=== PATIENT | male | born 1970 | race Caucasian/White ===

== ENCOUNTER → 2020-09-17 13:53 | Outpatient (REF) | payer OTHER, SELFPAY | LOC: HO.SL 13:53 | PROVIDERS: PCP Internal Medicine; Visit Provider Internal Medicine | DX: R06.83 Snoring (principal); R06.81 Apnea, not elsewhere classified | CPT/HCPCS: 95806 ==

== ENCOUNTER 2020-09-30 08:59 | Outpatient (REF) | payer OTHER, SELFPAY ==
--- NOTE | 2020-09-30 | US_ITS ---
EXAMINATION: US ABDOMEN COMPLETE CLINICAL INFORMATION: Hereditary hemochromatosis. COMPARISON: Abdominal ultrasound dated 05/08/2019. CT abdomen and pelvis dated 08/22/2011. TECHNIQUE: Real-time imaging of the abdominal viscera. FINDINGS: PANCREAS: Normal. ABDOMINAL AORTA: The proximal, mid, and distal segments are normal in caliber. INFERIOR VENA CAVA: Visualized portions are normal. LIVER: The liver is normal in size. The liver contour is normal. There is a diffuse echogenic liver with focal fatty sparing adjacent to gallbladder. No focal hepatic lesion. There is no intrahepatic biliary duct dilatation seen. GALLBLADDER: Normal. The gallbladder is physiologically distended without evidence of stones, sludge, polyps, wall thickening or pericholecystic fluid. COMMON BILE DUCT: Normal in caliber measuring 0.4 cm in diameter. RIGHT KIDNEY: Normal. No hydronephrosis. No renal calculi or focal parenchymal lesions. The kidney measures 9.9 cm in maximum dimension. LEFT KIDNEY: Normal. No hydronephrosis. No renal calculi or focal parenchymal lesions. The kidney measures 10.6 cm in maximum dimension. SPLEEN: Normal. The spleen measures 11.0 cm in maximum dimension. FREE FLUID: None. US/US abdomen complete IMPRESSION: Diffuse fatty liver with focal fatty sparing adjacent to gallbladder. The rest of the abdominal ultrasound is unremarkable.
[2020-09-30 11:25] LABS: Prothrombin Time 11.8 SEC (10.8-13.0)
== END 2020-09-30 09:00 | disposition home or self-care (01) ==
LOC: HO.HMGCX 08:59
PROVIDERS: PCP Internal Medicine; Visit Provider Internal Medicine
DX: E83.110 Hereditary hemochromatosis (principal)
CPT/HCPCS: 36415; 76700; 82105; 85610

== ENCOUNTER 2020-10-28 09:49 | Day surgery (SDC) | payer OTHER, SELFPAY ==
[2020-10-21 11:06] VITALS: BMI 24.3
--- NOTE | 2020-10-27 10:20 | P.CONAN_ITS ---
Documented by User: Katelynn Monroe 10/27/20 10:21 HPI - Anesthesia Eval Consult details Narrative: 49yo M for Colonoscopy PMFSH Past Medical History Medical History Fatty liver GERD (gastroesophageal reflux disease) Hemochromatosis Surgical History Surgical History H/O colonoscopy Social History Social History Smoking Status: Former smoker Smoking Quit Date: before 2009 Use of substances other than those prescribed or required for medical reasons: No Advance Directives Information Provided: No Meds Allergies Allergy/AdvReac Type Severity Reaction Status Date / Time No Known Allergies Allergy Verified 10/21/20 11:10 Home Medications Medication Instructions Recorded Confirmed Type ibuprofen 400 mg PO Q6H PRN 10/21/20 10/21/20 History omeprazole 20 mg PO DAILY 10/21/20 10/21/20 History Exam Exam Date and Time: October 27, 2020 1020 Height,Weight and Vital Signs: Height 5 ft 10.75 in Weight 78.471 kg Pertinent Lab Results Pertinent Lab Results: Laboratory Tests 08/25/20 08/25/20 06:28 06:28 WBC 4.8 Hgb 15.4 Hct 43.2 Plt Count 181 Sodium 141 Potassium 4.4 Chloride 105 BUN 17 H Creatinine 1.00 Assessment and Plan Assessment Anesthesia Assessment: Chart Reviewed Documented by User: Jonnie Vega 10/28/20 11:21 [facility] Past Medical History Medical History Fatty liver GERD (gastroesophageal reflux disease) Hemochromatosis Surgical History Surgical History H/O colonoscopy Social History Social History Smoking Status: Former smoker Smoking Quit Date: before 2009 Use of substances other than those prescribed or required for medical reasons: No Advance Directives Information Provided: No Meds Allergies Allergy/AdvReac Type Severity Reaction Status Date / Time No Known Allergies Allergy Verified 10/21/20 11:10 Home Medications Medication Instructions Recorded Confirmed Type ibuprofen 400 mg PO Q6H PRN 10/21/20 10/21/20 History omeprazole 20 mg PO DAILY 10/21/20 10/21/20 History Exam Airway Mallampati Class: II TM Dist: >3cm Neck ROM: Full Loose/Missing/Broken Teeth: No (many permanent caps) Heart: [id number] Lungs: CTA b/l Assessment and Plan Assessment Anesthesia Assessment: Anesthesia Plan Discussed, PAT Visit and Chart Reviewed Final Anesthetic Review NPO: Yes ASA Class: II Final Preanesthetic Review: No Changes in Pt Med Stat, Meds/Allgs Chart Reviewed, Consent Obtained/Reviewed and Anes Risks/Benef Reviewed Patient Risk: Low Procedure Risk: Low Assessment/Block/Sedation in SS: Assess/Block/Sedation-SS Anesthetic Plan Anesthetic Plan: MAC: Disposition: Standard PACU
[2020-10-28 10:24] VITALS: BP 134/84; PULSE 90; RESP 16; TEMP 36.8; O2SAT 98
[2020-10-28] MEDS: Lactated Ringers 1,000 ML 100 ML IVCONT (10:31)
[2020-10-28 12:06] VITALS: BP 117/74; PULSE 91; RESP 12; TEMP 36.2; O2SAT 97
--- NOTE | 2020-10-28 12:09 | PM.OP ---
Brief Operative Note Date of Service: 10/28/20 Pre-op diagnosis: Screening, History of colon polyps Post-op diagnosis: other (Rectal polyp, Diverticulosis) Procedure: Colonoscopy to cecum and TI with biopsy and removal of polyp Surgeon: Jake Blue Anesthesia: MAC Estimated blood loss (mL): 3.0 Pathology: other (A. Rectal polyp) Condition: stable Disposition: PACU
[2020-10-28 12:21] VITALS: BP 128/85; PULSE 81; RESP 13; TEMP 36.2; O2SAT 99
--- NOTE | 2020-10-28 12:52 | HO.POSTANES ---
Post Anesthesia Evaluation Post Anesthesia Evaluation Vital Signs: Vital Signs Temp Pulse Resp BP Pulse Ox 10/28/20 12:21 97.1 F 81 13 128/85 99 10/28/20 12:06 97.1 F 91 12 117/74 97 10/28/20 10:24 98.2 F 90 16 134/84 98 Anesthesia: Monitored Mental Status: Awake Pain Control: Satisfactory Nausea/Vomiting: None Hydration: Adequate Anesthesia-Related Issues: No Anes. Related Issues
--- NOTE | 2020-10-28 19:06 | OP_ITS ---
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 Full consent has been obtained from him for this, including risks of bleeding and perforation. PREOPERATIVE DIAGNOSIS: POSTOPERATIVE DIAGNOSIS: PROCEDURE PERFORMED: Colonoscopy to cecum and terminal ileum with biopsy and removal of polyp. ESTIMATED BLOOD LOSS: COMPLICATIONS: ANESTHESIA: Monitored anesthesia care. ASSISTANTS: SPECIMENS: PREOPERATIVE DIAGNOSES: Colorectal cancer screening and personal history of colon polyps. POSTOPERATIVE DIAGNOSES: Colorectal cancer screening and personal history of colon polyps, small rectal polyp, diverticulosis, internal hemorrhoids. DESCRIPTION OF PROCEDURE: The patient was placed in the left lateral decubitus position. The digital rectal exam revealed no abnormalities. The Olympus video pediatric colonoscope was entered into the rectum and advanced easily to the cecum. Once in the cecum, I did identify normal-appearing cecal pouch with appendiceal orifice and a normal-appearing ileocecal valve. The terminal ileum was cannulated and appeared normal. The scope was withdrawn back in the colon. The entire cecum and ileocecal valve appeared normal. The scope was slowly withdrawn assessing all mucosal surfaces carefully. Preparation was excellent. There was a mild amount of sigmoid diverticulosis. I did not visualize any sign of colitis nor angiodysplasia. In the rectum, was a flat approximately 5 mm polyp, which was biopsied and completely removed with cold biopsy forceps. The scope was retroflexed visualizing small internal hemorrhoids as well. The scope was straightened out and withdrawn from the patient. He tolerated the procedure well and was returned to recovery area in stable condition. IMPRESSION: 1. Rectal polyp, status post biopsy and removal. 2. Diverticulosis. 3. Internal hemorrhoids. PLAN: Given his previous history, I would recommend a followup colonoscopy in 3 years for further surveillance. He will otherwise see me on a p.r.n. basis. He will continue to have his phlebotomies every other month. MD DAVID Schneider/MELQUIADES / [phone]
== END 2020-10-28 12:54 | disposition home or self-care (01) ==
PROVIDERS: PCP Internal Medicine; Visit Provider Internal Medicine
PROC: 0DJD8ZZ Inspection of Lower Intestinal Tract, Via Natural or Artificial Opening Endoscopic (ICD-10-PCS; CPT 45378; principal; 2020-10-28 11:10)
DX: Z12.11 Encounter for screening for malignant neoplasm of colon (principal); Z86.010 Personal history of colon polyps; K62.1 Rectal polyp; K57.30 Diverticulosis of large intestine without perforation or abscess without bleeding; K64.8 Other hemorrhoids; K76.0 Fatty (change of) liver, not elsewhere classified; K21.9 Gastro-esophageal reflux disease without esophagitis; E83.119 Hemochromatosis, unspecified; Z79.899 Other long term (current) drug therapy
CPT/HCPCS: 45380; 88305

== ENCOUNTER 2020-11-03 15:59 | Outpatient (REF) | payer OTHER, SELFPAY | END 2020-11-03 16:00 | disposition home or self-care (01) | LOC: HO.BBR 15:59 | PROVIDERS: Visit Provider Internal Medicine | DX: Z13.89 Encounter for screening for other disorder (principal) ==

== ENCOUNTER 2021-01-05 15:55 | Outpatient (REF) | payer OTHER, SELFPAY ==
[2021-01-05 17:32] LABS: Iron 139 mcg/dL (45-160); Percent Iron Saturation 57 % (15-50); Total Iron Binding Capacity 242 mcg/dL (228-428); Unsaturated Iron Binding 103 ug/dL
[2021-01-05 17:51] LABS: Ferritin 23 ng/mL (20-250)
== END 2021-01-05 15:56 | disposition home or self-care (01) ==
LOC: HO.BBR 15:55
PROVIDERS: Visit Provider Internal Medicine
DX: E83.110 Hereditary hemochromatosis (principal)
CPT/HCPCS: 36415; 82728; 83540

== ENCOUNTER 2021-01-05 16:35 | Outpatient (REF) | payer SELFPAY ==
[2021-01-05 17:49] LABS: Cholesterol 117 mg/dL
== END 2021-01-05 16:36 | disposition home or self-care (01) ==
LOC: HO.LNC 16:35
PROVIDERS: Visit Provider Pathology Anatomic Pathology & Clinical Pathology
DX: Z13.89 Encounter for screening for other disorder (principal)
CPT/HCPCS: 36415; 82465

== ENCOUNTER 2021-03-29 14:16 | Outpatient (REF) | payer OTHER, SELFPAY | END 2021-03-29 14:17 | disposition home or self-care (01) | LOC: HO.BBR 14:16 | PROVIDERS: Visit Provider Internal Medicine | DX: Z13.89 Encounter for screening for other disorder (principal) ==

== ENCOUNTER 2021-06-11 14:01 | Outpatient (REF) | payer OTHER, SELFPAY ==
[2021-06-11 15:38] LABS: Iron 197 mcg/dL (45-160); Percent Iron Saturation 85 % (15-50); Total Iron Binding Capacity 233 mcg/dL (228-428); Unsaturated Iron Binding 36 ug/dL
[2021-06-11 16:00] LABS: Ferritin 34 ng/mL (20-250)
== END 2021-06-11 14:02 | disposition home or self-care (01) ==
LOC: HO.BBR 14:01
PROVIDERS: Visit Provider Internal Medicine
DX: E83.110 Hereditary hemochromatosis (principal)
CPT/HCPCS: 36415; 82728; 83540

== ENCOUNTER 2021-08-06 14:58 | Outpatient (REF) | payer OTHER, SELFPAY ==
[2021-08-06 15:59] LABS: Iron 179 mcg/dL (45-160); Percent Iron Saturation 72 % (15-50); Total Iron Binding Capacity 248 mcg/dL (228-428); Unsaturated Iron Binding 69 ug/dL
[2021-08-06 16:19] LABS: Ferritin 20 ng/mL (20-250)
== END 2021-08-06 14:59 | disposition home or self-care (01) ==
LOC: HO.BBR 14:58
PROVIDERS: Visit Provider Internal Medicine
DX: E83.110 Hereditary hemochromatosis (principal)
CPT/HCPCS: 36415; 82728; 83540

== ENCOUNTER 2021-08-25 05:54 | Outpatient (REF) | payer OTHER, SELFPAY ==
[2021-08-25 06:11] LABS: MANUAL DIFF FLAG NO
[2021-08-25 07:04] LABS: Basophils Percent Auto 0.4 % (0-2); Eosinophils Absolute Auto 0.4 X10*3/uL (0.0-0.4); Eosinophils Percent Auto 7.4 % (0-4); Hematocrit 43.6 % (42-52); Hemoglobin 15.2 g/dl (14.0-18.0); Imm Gran Abs Auto 0.01 X10*3/uL (0.00-0.03); Imm Gran Pct Auto 0.2 % (0.0-0.4); Lymphocytes Absolute Auto 1.9 X10*3/uL (1.2-4.9); Lymphocytes Percent Auto 34.4 % (20-40); Mean Corpuscular HGB Conc 34.9 g/dl (31.0-36.0); Mean Corpuscular Hemoglobin 33.3 pg (27.0-33.0); Mean Corpuscular Volume 95.6 fL (80-98); Mean Platelet Volume 11.8 fL (9.4-12.4); Monocytes Absolute Auto 0.6 X10*3/uL (0.1-1.2); Monocytes Percent Auto 10.6 % (2-11); Neutrophils Absolute Auto 2.5 X10*3/uL (2.0-8.3); Platelet Count 205 X10*3/uL (160-400); Red Blood Count 4.56 X10*6/uL (4.60-5.80); Red Cell Distribution Width 13.1 % (11.0-16.0); White Blood Count 5.4 X10*3/uL (4.8-10.8)
[2021-08-25 07:26] LABS: Alanine Aminotransferase 28 U/L (0-40); Albumin Level 4.7 g/dL (3.5-5.0); Alkaline Phosphatase 47 U/L (39-117); Anion Gap 11 (12-20); Aspartate Amino Transferase 26 U/L (5-37); Bilirubin Total 1.4 mg/dL (0.0-1.0); Blood Urea Nitrogen 14 mg/dL (9-16); Calcium 9.6 mg/dL (8.4-10.2); Carbon Dioxide 27 mmol/L (22-29); Chloride 105 mmol/L (96-108); Cholesterol 129 mg/dL; Estimated Glomerular Filt Rate > 60; Glucose Fasting 105 mg/dL (60-99); HDL Cholesterol 47 mg/dL; LDL Cholesterol Calculated 73 mg/dl; Potassium 4.4 mmol/L (3.3-5.1); Sodium 139 mmol/L (135-145); Total Protein 7.5 g/dL (6.5-8.0); Triglycerides 47 mg/dL
[2021-08-25 07:47] LABS: Prostate Specific Antigen 1.95 ng/mL (<0.05-4.0); Thyroid Stimulating Hormone 2.46 uIU/mL (0.32-4.0)
== END 2021-08-25 05:55 | disposition home or self-care (01) ==
LOC: HO.LAB 05:54
PROVIDERS: PCP Internal Medicine; Visit Provider Internal Medicine
DX: Z00.00 Encounter for general adult medical examination without abnormal findings (principal); Z12.5 Encounter for screening for malignant neoplasm of prostate; R53.83 Other fatigue
CPT/HCPCS: 36415; 80053; 80061; 84153; 84443; 85025

== ENCOUNTER 2021-11-09 15:24 | Outpatient (REF) | payer OTHER, SELFPAY | END 2021-11-09 15:25 | disposition home or self-care (01) | LOC: HO.BBR 15:24 | PROVIDERS: Visit Provider Internal Medicine | DX: Z13.89 Encounter for screening for other disorder (principal) ==

== ENCOUNTER 2022-01-11 15:27 | Outpatient (REF) | payer OTHER, SELFPAY | END 2022-01-11 15:28 | disposition home or self-care (01) | LOC: HO.BBR 15:27 | PROVIDERS: Visit Provider Internal Medicine | DX: Z13.89 Encounter for screening for other disorder (principal) ==

== ENCOUNTER 2022-03-08 15:26 | Outpatient (REF) | payer OTHER, SELFPAY ==
[2022-03-08 16:16] LABS: Iron 184 mcg/dL (45-160); Percent Iron Saturation 77 % (15-50); Total Iron Binding Capacity 238 mcg/dL (228-428); Unsaturated Iron Binding 54 ug/dL
[2022-03-08 16:36] LABS: Ferritin 21 ng/mL (20-250)
== END 2022-03-08 15:27 | disposition home or self-care (01) ==
LOC: HO.BBR 15:26
PROVIDERS: Visit Provider Internal Medicine
DX: E83.110 Hereditary hemochromatosis (principal)
CPT/HCPCS: 36415; 82728; 83540

== ENCOUNTER 2022-03-15 14:49 | Outpatient (REF) | payer OTHER, SELFPAY ==
--- NOTE | ~2022-03-15 | XR_ITS ---
EXAMINATION: XR CHEST CLINICAL INFORMATION: Cough. Fatigue. COMPARISON: None TECHNIQUE: 2 views of the chest were obtained. FINDINGS: The cardiac and mediastinal contours are normal. There is question of a 1 x 1.5 cm left apical nodule. This overlies the third left posterior rib. The lungs are otherwise clear. There is no pleural effusion or pneumothorax. There are degenerative changes of the spine. XR/XR chest 2V IMPRESSION: Question 1 x 1.5 cm left upper lobe nodule. Follow-up apical lordotic view of the chest or chest CT recommended.
[2022-03-15 15:06] LABS: MANUAL DIFF FLAG NO
[2022-03-15 15:16] LABS: Basophils Percent Auto 0.5 % (0-2); Eosinophils Absolute Auto 0.5 X10*3/uL (0.0-0.4); Eosinophils Percent Auto 7.4 % (0-4); Hematocrit 41.1 % (42.0-52.0); Hemoglobin 14.6 g/dl (14.0-18.0); Imm Gran Abs Auto 0.02 X10*3/uL (0.00-0.03); Imm Gran Pct Auto 0.3 % (0.0-0.4); Lymphocytes Percent Auto 31.2 % (20-40); Mean Corpuscular HGB Conc 35.5 g/dl (31.0-36.0); Mean Corpuscular Hemoglobin 33.2 pg (27.0-33.0); Mean Corpuscular Volume 93.4 fL (80.0-98.0); Mean Platelet Volume 11.7 fL (9.4-12.4); Monocytes Absolute Auto 0.8 X10*3/uL (0.1-1.2); Monocytes Percent Auto 12.2 % (2-11); Neutrophils Absolute Auto 3.1 x10*3/uL (2.0-8.3); Neutrophils Percent Auto 48.4 % (45-73); Platelet Count 215 X10*3/uL (160-400); Red Cell Distribution Width 12.9 % (11.0-16.0); White Blood Count 6.3 X10*3/uL (4.8-10.8)
[2022-03-15 15:42] LABS: Alanine Aminotransferase 32 U/L (0-40); Albumin Level 4.6 g/dL (3.5-5.0); Alkaline Phosphatase 47 U/L (39-117); Anion Gap 10 (12-20); Aspartate Amino Transferase 24 U/L (5-37); Bilirubin Total 1.2 mg/dL (0.0-1.0); Blood Urea Nitrogen 17 mg/dL (9-16); Carbon Dioxide 32 mmol/L (22-29); Chloride 104 mmol/L (96-108); Estimated Glomerular Filt Rate > 60; Glucose Random 96 mg/dL (60-115); Iron 86 mcg/dL (45-160); Percent Iron Saturation 31 % (15-50); Potassium 4.3 mmol/L (3.3-5.1); Sodium 142 mmol/L (135-145); Total Iron Binding Capacity 279 mcg/dL (228-428); Total Protein 7.5 g/dL (6.5-8.0); Unsaturated Iron Binding 193 ug/dL
[2022-03-15 16:04] LABS: Ferritin 19 ng/mL (20-250)
[2022-03-15 16:09] LABS: Vitamin B12 389 pg/mL (200-900)
== END 2022-03-15 14:50 | disposition home or self-care (01) ==
LOC: HO.XRAY 14:49
PROVIDERS: PCP Internal Medicine; Visit Provider Internal Medicine
DX: R05.9 Cough, unspecified (principal); R53.83 Other fatigue; G47.33 Obstructive sleep apnea (adult) (pediatric); E83.110 Hereditary hemochromatosis
CPT/HCPCS: 36415; 71046; 80053; 82607; 82728; 83540; 85025

== ENCOUNTER 2022-03-24 16:15 | Outpatient (REF) | payer OTHER, SELFPAY ==
--- NOTE | ~2022-03-24 | CT_ITS ---
EXAMINATION: CT CHEST WITHOUT CONTRAST CLINICAL INFORMATION: Solitary pulmonary nodule. COMPARISON: None TECHNIQUE: Multidetector volumetric CT imaging of the chest was done. Axial MIP volume rendering provided. Sagittal and coronal reformatted images were obtained. This CT examination was performed using dose optimization techniques as appropriate, variously including the following: *Automated exposure control *Adjustment of mA and/or kV according to patient size (this includes techniques or standardized protocols for targeted exams where dose is matched to indication/reason for exam; i.e. extremities or head) *Use of iterative reconstruction technique DLP: 186 mGy-cm FINDINGS: BELT CLEANER: The lungs are hyperinflated but clear. LUNGS: The lungs are well expanded with 2 mm calcified nodule left lung apex image 121/7, 1 mm calcified nodule image 419/7. No noncalcified nodules visualized. No additional nodule seen. MEDIASTINUM: The thyroid lobes are symmetrical and normal. The central trachea and the bronchi are widely patent. Heart size and the great vessels are normal caliber. No pericardial effusion seen. No abnormal-sized mediastinal or hilar lymph node seen. PLEURA: There is no pleural effusion. No pleural mass or thickening. AXILLA: Small shotty lymph nodes are seen in the axilla. The chest wall is unremarkable. UPPER ABDOMEN: Visualized liver, spleen, pancreas and bilateral adrenal glands are unremarkable. No radiopaque gallstone seen. OSSEOUS STRUCTURES: No lytic or sclerotic process seen. There is mild ventral spondylosis mid dorsal spine. CT/CT chest wo con IMPRESSION: Stable pulmonary nodules. No new nodule seen. No abnormal mediastinal or axillary lymphadenopathy. Fleischner guidelines were followed.
== END 2022-03-24 16:16 | disposition home or self-care (01) ==
LOC: HO.CT 16:15
PROVIDERS: Visit Provider Internal Medicine
DX: R91.1 Solitary pulmonary nodule (principal)
CPT/HCPCS: 71250

== ENCOUNTER 2022-05-25 15:23 | Outpatient (REF) | payer OTHER, SELFPAY | END 2022-05-25 15:24 | disposition home or self-care (01) | LOC: HO.BBR 15:23 | PROVIDERS: Visit Provider Internal Medicine | DX: Z13.89 Encounter for screening for other disorder (principal) ==

== ENCOUNTER 2022-07-26 15:26 | Outpatient (REF) | payer OTHER, SELFPAY | END 2022-07-26 15:27 | disposition home or self-care (01) | LOC: HO.BBR 15:26 | PROVIDERS: Visit Provider Internal Medicine | DX: Z13.89 Encounter for screening for other disorder (principal) ==

== ENCOUNTER 2022-09-22 15:28 | Outpatient (REF) | payer OTHER, SELFPAY ==
[2022-09-22 17:11] LABS: Iron 189 mcg/dL (45-160); Percent Iron Saturation 71 % (15-50); Total Iron Binding Capacity 268 mcg/dL (228-428); Unsaturated Iron Binding 79 ug/dL
[2022-09-22 17:37] LABS: Ferritin 16 ng/mL (20-250)
== END 2022-09-22 15:29 | disposition home or self-care (01) ==
LOC: HO.BBR 15:28
PROVIDERS: Visit Provider Internal Medicine
DX: E83.110 Hereditary hemochromatosis (principal)
CPT/HCPCS: 36415; 82728; 83540

== ENCOUNTER 2022-12-16 15:26 | Outpatient (REF) | payer OTHER, SELFPAY | END 2022-12-16 15:27 | disposition home or self-care (01) | LOC: HO.BBR 15:26 | PROVIDERS: PCP Internal Medicine; Visit Provider Internal Medicine | DX: Z13.89 Encounter for screening for other disorder (principal) ==

== ENCOUNTER 2022-12-28 08:44 | Outpatient (REF) | payer OTHER, SELFPAY ==
--- NOTE | ~2022-12-28 | US_ITS ---
EXAMINATION: US ABDOMEN COMPLETE CLINICAL INFORMATION: Hereditary hemochromatosis. COMPARISON: Ultrasound abdomen complete 09/30/2020 and 05/08/2019. TECHNIQUE: Real-time imaging of the abdominal viscera. FINDINGS: PANCREAS: The visualized portions of the pancreas are unremarkable but most of the gland is obscured by bowel gas. ABDOMINAL AORTA: The proximal, mid, and distal segments are normal in caliber. INFERIOR VENA CAVA: Visualized portions are normal. LIVER: The liver is normal in size. The liver contour is normal. There is diffuse increased liver parenchymal echogenicity, consistent with hepatic steatosis. Focal fatty sparing is seen adjacent to the gallbladder. No focal hepatic lesion. There is no intrahepatic biliary duct dilatation seen. GALLBLADDER: Normal. The gallbladder is physiologically distended without evidence of stones, sludge, polyps, wall thickening or pericholecystic fluid. COMMON BILE DUCT: Normal in caliber measuring 0.5 cm in diameter. RIGHT KIDNEY: Normal. No hydronephrosis. No renal calculi or focal parenchymal lesions. The kidney measures 10.0 cm in maximum dimension. LEFT KIDNEY: An 8 x 4 mm echogenic focus is seen in the left mid kidney which could represent a stone, although it does not meet the strict criteria for a stone and no stones have been seen in the past. No hydronephrosis or focal parenchymal lesions. The kidney measures 11.3 cm in maximum dimension. SPLEEN: Normal. The spleen measures 11.2 cm in maximum dimension. FREE FLUID: None. US/US abdomen complete IMPRESSION: 1. Hepatic steatosis. 2. Possible left renal calculus.
== END 2022-12-28 08:45 | disposition home or self-care (01) ==
LOC: HO.US 08:44
PROVIDERS: PCP Internal Medicine; Visit Provider Internal Medicine
DX: E83.110 Hereditary hemochromatosis (principal)
CPT/HCPCS: 76700

== ENCOUNTER 2023-02-16 14:22 | Outpatient (REF) | payer OTHER, SELFPAY | END 2023-02-16 14:23 | disposition home or self-care (01) | LOC: HO.BBR 14:22 | PROVIDERS: Visit Provider Internal Medicine | DX: Z13.89 Encounter for screening for other disorder (principal) ==

== ENCOUNTER 2023-04-19 13:55 | Outpatient (REF) | payer OTHER, SELFPAY ==
[2023-04-19 16:27] LABS: Iron 82 mcg/dL (45-160); Percent Iron Saturation 32 % (15-50); Total Iron Binding Capacity 260 mcg/dL (228-428); Unsaturated Iron Binding 178 ug/dL
[2023-04-19 16:45] LABS: Ferritin 12 ng/mL (20-250)
== END 2023-04-19 13:56 | disposition home or self-care (01) ==
LOC: HO.BBR 13:55
PROVIDERS: PCP Internal Medicine; Visit Provider Internal Medicine
DX: E83.110 Hereditary hemochromatosis (principal)
CPT/HCPCS: 36415; 82728; 83540

== ENCOUNTER 2023-06-19 13:53 | Outpatient (REF) | payer OTHER, SELFPAY | END 2023-06-19 13:54 | disposition home or self-care (01) | LOC: HO.BBR 13:53 | PROVIDERS: PCP Internal Medicine; Visit Provider Internal Medicine | DX: Z13.89 Encounter for screening for other disorder (principal) ==

== ENCOUNTER 2023-08-23 13:59 | Outpatient (REF) | payer OTHER, SELFPAY | END 2023-08-23 14:00 | disposition home or self-care (01) | LOC: HO.BBR 13:59 | PROVIDERS: PCP Internal Medicine; Visit Provider Internal Medicine | DX: Z13.89 Encounter for screening for other disorder (principal) ==

== ENCOUNTER 2023-10-24 14:55 | Outpatient (REF) | payer OTHER, SELFPAY ==
[2023-10-24 16:05] LABS: Iron 140 mcg/dL (45-160); Percent Iron Saturation 55 % (15-50); Total Iron Binding Capacity 255 mcg/dL (228-428); Unsaturated Iron Binding 115 ug/dL
[2023-10-24 16:20] LABS: Ferritin 13 ng/mL (20-250)
== END 2023-10-24 14:56 | disposition home or self-care (01) ==
LOC: HO.BBR 14:55
PROVIDERS: PCP Internal Medicine; Visit Provider Internal Medicine
DX: E83.110 Hereditary hemochromatosis (principal)
CPT/HCPCS: 36415; 82728; 83540

== ENCOUNTER 2024-01-03 14:53 | Outpatient (REF) | payer OTHER, SELFPAY | END 2024-01-03 14:54 | disposition home or self-care (01) | LOC: HO.BBR 14:53 | PROVIDERS: PCP Internal Medicine; Visit Provider Internal Medicine | DX: Z13.89 Encounter for screening for other disorder (principal) ==

== ENCOUNTER 2024-03-05 14:51 | Outpatient (REF) | payer OTHER, SELFPAY | END 2024-03-05 14:52 | disposition home or self-care (01) | LOC: HO.BBR 14:51 | PROVIDERS: PCP Internal Medicine; Visit Provider Internal Medicine | DX: Z13.89 Encounter for screening for other disorder (principal) ==

== ENCOUNTER 2024-03-08 08:18 | Outpatient (REF) | payer OTHER, SELFPAY ==
--- NOTE | ~2024-03-08 | US_ITS ---
EXAMINATION: US COMPLETE ABDOMEN WITH LIVER ELASTOGRAPHY CLINICAL INFORMATION: Hereditary hemochromatosis. COMPARISON: Abdominal ultrasound dated 12/28/2022; CT abdomen and pelvis dated 08/22/2011. TECHNIQUE: Real-time imaging of the abdominal viscera. Noninvasive ultrasound liver fibrosis assessment is performed using Anabel ElastPQ point quantification shear wave elastography (2D-SWE) with a C5-2 MHz transducer. Multiple elastography samples are obtained. FINDINGS: PANCREAS: Normal. The visualized pancreatic head and body are normal in appearance. The remainder of the pancreas is obscured from visualization by the overlying bowel gas. ABDOMINAL AORTA: The proximal, middle, and distal aortic segments are normal in caliber. INFERIOR VENA CAVA: Visualized portions are normal. LIVER: The liver demonstrates normal size and contour. There is heterogeneous increase in echotexture, with a geographic pattern. No focal lesion or intrahepatic biliary duct dilatation. The right lobe measures 12.4 cm in length. The left lobe measures 12.0 cm in length. Portal flow is towards the liver (hepatopetal). Shear wave liver elastography median stiffness is 1.36 m/s (reference: normal median stiffness is 1.3 m/s or less). IQR/median stiffness to assess sampling precision is 0.13 (reference: good quality data set is IQR/median stiffness of 0.15 or less). GALLBLADDER: Normal. The gallbladder is physiologically distended without evidence of stones, sludge, polyps, wall thickening or pericholecystic fluid. COMMON BILE DUCT: Normal in caliber measuring 0.4 cm in diameter. RIGHT KIDNEY: Normal. No hydronephrosis. No renal calculi or focal parenchymal lesions. The kidney measures 9.3 cm in maximum dimension. LEFT KIDNEY: At the interpolar aspect, a 1.0 cm benign, simple cyst is seen, for which no imaging follow-up is recommended.. No hydronephrosis. No renal calculi or focal parenchymal lesions. The kidney measures 10.8 cm in maximum dimension. SPLEEN: Normal. The spleen measures 11.4 cm in maximum dimension. FREE FLUID: None. US/US abdomen comp w elastography IMPRESSION: 1. There is increased hepatic echotexture with a geographic pattern. This ultrasound appearance favors fatty infiltration. If further assessment for hematochromatosis is desired, consider abdominal MRI characterization. No focal hepatic mass or intrahepatic biliary dilatation is seen. 2. Liver elastography: In the absence of other known clinical signs, measurements rule out compensated advanced chronic liver disease. If there are known clinical signs, further testing may be needed for confirmation. REFERENCE: Society of Radiologists in Ultrasound Liver Stiffness Thresholds (2020): LIVER STIFFNESS THRESHOLDS: *Liver Stiffness equal or less than 1.3 m/s: High probability of being normal. *Liver Stiffness less than 1.7 m/s: In the absence of other known clinical signs, rules out compensated advanced chronic liver disease. *Liver Stiffness 1.7-2.1 m/s: Suggestive of compensated advanced chronic liver disease but need further test for confirmation. *Liver Stiffness over 2.1 m/s: Rules in compensated advanced chronic liver disease. *Liver Stiffness over 2.4 m/s: Suggestive of clinically significant portal hypertension. QUALITY OF DATA SET: *IQR/Median value equal or less than 0.15 implies a quality data set. *IQR/Median value over 0.15 implies a poor quality data set. SIGNIFICANT CHANGE FROM PRIOR EXAM: Significant change if liver stiffness measurement is 10% or greater from prior exam. OTHER CONSIDERATIONS: The stage of liver fibrosis may be overestimated in the setting of acute hepatitis, liver inflammation, elevated liver function tests, hepatic vascular congestion, obstructive cholestasis, non-fasting state, and infiltrative diseases such as amyloidosis and lymphoma. In some patients with NAFLD, the liver stiffness thresholds for compensated advanced chronic liver disease may be lower. In causes other than viral hepatitis and NAFLD, liver stiffness thresholds are not well established.
== END 2024-03-08 08:19 | disposition home or self-care (01) ==
LOC: HO.US 08:18
PROVIDERS: PCP Internal Medicine; Visit Provider Internal Medicine
DX: E83.110 Hereditary hemochromatosis (principal)
CPT/HCPCS: 76700; 76981

== ENCOUNTER 2024-05-08 14:51 | Outpatient (REF) | payer OTHER, SELFPAY ==
[2024-05-08 17:10] LABS: Iron 156 mcg/dL (45-160); Percent Iron Saturation 58 % (15-50); Total Iron Binding Capacity 271 mcg/dL (228-428); Unsaturated Iron Binding 115 ug/dL
[2024-05-08 17:23] LABS: Ferritin 13 ng/mL (20-250)
== END 2024-05-08 14:52 | disposition home or self-care (01) ==
LOC: HO.BBR 14:51
PROVIDERS: PCP Internal Medicine; Visit Provider Internal Medicine
DX: E83.110 Hereditary hemochromatosis (principal)
CPT/HCPCS: 36415; 82728; 83540

== ENCOUNTER 2024-06-03 08:12 | Day surgery (SDC) | payer OTHER, SELFPAY ==
[2024-05-29 15:20] VITALS: BMI 25.3
[2024-06-03 08:34] VITALS: BMI 24.3
[2024-06-03 08:40] VITALS: BP 114/76; PULSE 83; RESP 15; TEMP 36.5; O2SAT 97
[2024-06-03] MEDS: Lactated Ringers 1,000 ML 50 ML IVCONT (08:53)
--- NOTE | 2024-06-03 09:34 | HO.ANESPROP2 ---
HPI - Anesthesia Eval Consult details Narrative: 53 yo M presenting for EGD and colonoscopy. Hx of hemochromatosis with therapeutic phlebotomies. [facility] Past Medical History Medical History RENETTA on CPAP Fatty liver GERD (gastroesophageal reflux disease) Hemochromatosis Family History Family history of problems with anesthesia: No Surgical History Surgical History H/O colonoscopy History of Problems with Anesthesia: No Social History Social History (Updated 05/29/24 @ 15:22 by Gabriela Pal RN) Patient Tobacco Use Status: Never used Tobacco Tobacco use type: Cigarette Use of substances other than those prescribed or required for medical reasons: Yes Substance Use Type Other:: smoked Substance Use Frequency: Occasionally Are you DNR?: No Advance Directives: No Advance Directives Information Provided: Yes Meds Allergies Allergy/AdvReac Type Severity Reaction Status Date / Time No Known Allergies Allergy Verified 06/03/24 08:33 Active Medications: Current Medications Lactated Ringer's (Lr) 1,000 mls @ 50 mls/hr IVCONT .Q20H ANT Last Admin: 06/03/24 08:53 Dose: 50 mls/hr Sodium Biphosphate/Sodium Phosphate (Sodium Phosphate,[place]-Dibasic 133 Ml Enema) 133 ml DC ONCE PRN PRN Reason: Poor Colonoscopy Prep Results Home Medications ?Medication ?Instructions ?Recorded ?Confirmed ?Last Taken ?Type ibuprofen 200 mg tablet 400 mg PO Q6H PRN Pain 10/21/20 06/03/24 05/31/24 History omeprazole 20 mg capsule,delayed 20 mg PO DAILY 10/21/20 06/03/24 Unknown History release Exam Exam Date and Time: June 03, 2024907 Height,Weight and Vital Signs: Height 5 ft 10.75 in Weight 78.381 kg Last Vital Signs Temp 97.7 F 06/03/24 08:40 Pulse 83 06/03/24 08:40 Resp 15 06/03/24 08:40 BP 114/76 06/03/24 08:40 Pulse Ox 97 06/03/24 08:40 O2 Del Method Room Air 06/03/24 08:40 Airway Mallampati Class: II TM Dist: <=3cm Neck ROM: Full Loose/Missing/Broken Teeth: No (patient denies any loose or broken teeth) Heart: S1S2 Lungs: CTAB Assessment and Plan Assessment Anesthesia Assessment: Anesthesia Plan Discussed and Chart Reviewed Final Anesthetic Review Family History of Problems with Anesthesia: No History of Problems with Anesthesia: No NPO: Yes ASA Class: II Final Preanesthetic Review: No Changes in Pt Med Stat, Meds/Allgs Chart Reviewed, Consent Obtained/Reviewed and Anes Risks/Benef Reviewed Patient Risk: Low Procedure Risk: Low Anesthetic Plan Anesthetic Plan: MAC: and Agree w/ Assess. and Plan Disposition: Standard PACU
--- NOTE | 2024-06-03 10:10 | PC.NURSE ---
24hr update documented on paper
[2024-06-03 10:55] VITALS: BP 140/88; PULSE 97; RESP 16; TEMP 36.5; O2SAT 98
--- NOTE | 2024-06-03 11:01 | PM.OP ---
Brief Operative Note Date of Service: 06/03/24 Pre-op diagnosis: GERD, Screening Post-op diagnosis: other (Gastritis, Hiatal hernia, Colon polyps) Procedure: EGD with biopsies, Colonosocpy to the cecum and TI with bx/removal of polyp(Proximal ascending colon), cold snare polypectomy(50cm), and hot snare polypectomy(Distal ascending colon) Surgeon: Jake Blue MD Anesthesia: MAC Was an Assistant Men'S Soccer Coach used for this Procedure?: No Estimated blood loss (mL): 2.0 Pathology: other (A. Gastric antrum B. Ascending colon polyps C. Polyp at 50cm) Condition: stable Disposition: PACU
[2024-06-03 11:10] VITALS: BP 134/72; PULSE 82; RESP 18; TEMP 36.8; O2SAT 100
--- NOTE | 2024-06-03 11:40 | OP_ITS ---
DATE OF SERVICE: 06/03/2024 SURGEON: Jake Blue MD INDICATIONS: The patient presents for evaluation of gastroesophageal reflux, personal history of colon polyps, and colorectal cancer screening. Full consent has been obtained from him for this, including risks of bleeding and perforation. PREOPERATIVE DIAGNOSIS: POSTOPERATIVE DIAGNOSIS: PROCEDURE PERFORMED: Esophagogastroduodenoscopy with biopsies, colonoscopy to cecum and terminal ileum with biopsy removal of polyp, hot snare polypectomy, and cold snare polypectomy. ESTIMATED BLOOD LOSS: COMPLICATIONS: ANESTHESIA: Monitored anesthesia care. ASSISTANTS: SPECIMENS: PREOPERATIVE DIAGNOSES: Gastroesophageal reflux, colon cancer screening, personal history of colon polyps. POSTOPERATIVE DIAGNOSES: Gastroesophageal reflux, colon cancer screening, personal history of colon polyps, small hiatal hernia, mild gastritis, colon polyps, diverticulosis, and internal hemorrhoids. DESCRIPTION OF PROCEDURE: The patient was placed in the left lateral decubitus position. The Olympus video gastroscope was passed in the posterior oropharynx and upper esophagus under direct vision. The scope was passed slowly into the distal esophagus. The gastroesophageal junction appeared at 36 cm. There was no sign of any esophagitis nor Lowe esophagus. There was a small hiatal hernia. The scope was advanced to pylorus and the duodenum was cannulated to the descending portion. The duodenum including the bulb appeared normal without mass or ulceration. The scope withdrawn back to the stomach. The gastric antrum had some areas of erythema and edema consistent with a mild gastritis. There were no erosions nor ulceration. There was good peristalsis. Biopsies were obtained from the antrum. The scope was retroflexed, visualizing the proximal stomach carefully, which appeared normal, without any sign of mass or ulceration. The scope was straightened and withdrawn back to the esophagus. The esophageal mucosa appeared normal. The scope was withdrawn from the patient. He was turned around for the colonoscopy. The digital rectal exam revealed no abnormalities. The Olympus video pediatric colonoscope was then entered into the rectum and advanced easily to the cecum. Once in the cecum, I did identify normal-appearing cecal pouch with appendiceal orifice and a normal-appearing ileocecal valve. The terminal ileum was cannulated and appeared normal. The scope withdrawn back in the colon. The entire cecum and ileocecal valve appeared normal. The scope was slowly withdrawn assessing all mucosal surfaces carefully. Preparation was excellent. In the proximal ascending colon, was an approximately 4 or 5 mm polyp, which was biopsied and completely removed with the cold biopsy forceps. In the more distal ascending colon, was an approximately 8 to 10 mm polyp on a short stalk, which was removed by hot snare polypectomy and recovered by suction. The polypectomy site appeared clean, without any sign of residual polyp nor bleeding. At 50 cm, was an approximately 5 mm polyp, which was removed by cold snare polypectomy and recovered by suction. The polypectomy site appeared clean, without any sign of residual polyp nor significant bleeding. I did not visualize any other polyps, colitis, nor angiodysplasias. There was a mild amount of sigmoid diverticulosis. In the rectum, scope was retroflexed, visualizing internal hemorrhoids, but no other pathology. The rectal mucosa appeared normal. The scope was straightened and withdrawn from the patient. He tolerated both procedures well and was returned to the recovery area in stable condition. IMPRESSION: 1. Small hiatal hernia, gastroesophageal reflux. 2. Mild gastritis. 3. Colon polyps. 4. Diverticulosis. 5. Internal hemorrhoids. PLAN: The results of the pathology will be checked. I would recommend a repeat colonoscopy in 5 years for further surveillance. He will continue his omeprazole for his reflux. He was advised not to use any aspirin and NSAIDs for 1 week. He was advised to see me in 1 year for followup in regard to the underlying hemochromatosis. He will, otherwise, see me as needed. MD DAVID Schneider/MELQUIADES / [phone]
== END 2024-06-03 11:46 | disposition home or self-care (01) ==
PROVIDERS: PCP Internal Medicine; Visit Provider Internal Medicine
PROC: (CPT 45385; principal; 2024-06-03 09:30)
DX: Z12.11 Encounter for screening for malignant neoplasm of colon (principal); Z86.010 Personal history of colon polyps; D12.2 Benign neoplasm of ascending colon; D12.5 Benign neoplasm of sigmoid colon; K57.30 Diverticulosis of large intestine without perforation or abscess without bleeding; K64.8 Other hemorrhoids; K21.9 Gastro-esophageal reflux disease without esophagitis; K44.9 Diaphragmatic hernia without obstruction or gangrene; K29.60 Other gastritis without bleeding; K76.0 Fatty (change of) liver, not elsewhere classified; E83.110 Hereditary hemochromatosis; G47.33 Obstructive sleep apnea (adult) (pediatric); Z79.1 Long term (current) use of non-steroidal anti-inflammatories (NSAID); Z79.899 Other long term (current) drug therapy; Z87.891 Personal history of nicotine dependence
CPT/HCPCS: 45385; 45380; 43239; 88305; 88313; 88342; J1596; J2704

== ENCOUNTER 2024-06-13 06:00 | Outpatient (REF) | payer OTHER, SELFPAY ==
[2024-06-13 06:10] LABS: MANUAL DIFF FLAG NO
[2024-06-13 07:19] LABS: Basophils Percent Auto 0.8 % (0-2); Eosinophils Absolute Auto 0.3 X10*3/uL (0.0-0.4); Eosinophils Percent Auto 7.1 % (0-4); Hematocrit 42.3 % (42.0-52.0); Hemoglobin 14.4 g/dl (14.0-18.0); Imm Gran Abs Auto 0.01 X10*3/uL (0.00-0.03); Imm Gran Pct Auto 0.2 % (0.0-0.4); Lymphocytes Absolute Auto 1.4 X10*3/uL (1.2-4.9); Mean Corpuscular Hemoglobin 32.1 pg (27.0-33.0); Mean Corpuscular Volume 94.4 fL (80.0-98.0); Mean Platelet Volume 12.1 fL (9.4-12.4); Monocytes Absolute Auto 0.5 X10*3/uL (0.1-1.2); Monocytes Percent Auto 11.3 % (2-11); Neutrophils Absolute Auto 2.5 x10*3/uL (2.0-8.3); Neutrophils Percent Auto 51.6 % (45-73); Platelet Count 195 X10*3/uL (160-400); Red Blood Count 4.48 X10*6/uL (4.60-5.80); Red Cell Distribution Width 14.1 % (11.0-16.0); White Blood Count 4.8 X10*3/uL (4.8-10.8)
[2024-06-13 07:24] LABS: INTERNATIONAL NORM RATIO 0.9 (0.9-1.1); Prothrombin Time 10.8 SEC (11.1-13.3)
[2024-06-13 07:48] LABS: Alanine Aminotransferase 24 U/L (0-40); Albumin Level 4.9 g/dL (3.5-5.0); Alkaline Phosphatase 52 U/L (39-117); Aspartate Amino Transferase 22 U/L (5-37); Bilirubin Direct 0.3 mg/dL (0.0-0.5); Bilirubin Total 0.9 mg/dL (0.0-1.0); Total Protein 7.9 g/dL (6.5-8.0)
[2024-06-18 12:47] LABS: Alpha Fetoprotein 1.8 ng/mL (<6.1)
[2024-06-21 15:44] LABS: FIB-ALT 22 U/L (9-46); FIB-Alpha-2-Macroglobulin 178 mg/dL (106-279); FIB-Apolipoprotein A1 161 mg/dL (94-176); FIB-GGT 17 U/L (3-85); FIB-Haptoglobin 71 mg/dL (43-212); FIB-Total Bilirubin 0.8 mg/dL (0.2-1.2); Liver Fibrosis Score 0.26; Liver Fibrosis Stage F0-F1; Nec Inflam Act Grade A0; Nec Inflam Act Score 0.09
== END 2024-06-13 06:01 | disposition home or self-care (01) ==
LOC: HO.LAB 06:00
PROVIDERS: PCP Internal Medicine; Visit Provider Internal Medicine
DX: E83.110 Hereditary hemochromatosis (principal)
CPT/HCPCS: 36415; 80076; 81596; 82105; 85025; 85610

== ENCOUNTER 2024-07-10 14:50 | Outpatient (REF) | payer OTHER, SELFPAY | END 2024-07-10 14:51 | disposition home or self-care (01) | LOC: HO.BBR 14:50 | PROVIDERS: PCP Internal Medicine; Visit Provider Internal Medicine | DX: Z13.89 Encounter for screening for other disorder (principal) ==

== ENCOUNTER 2024-09-19 14:54 | Outpatient (REF) | payer OTHER, SELFPAY | END 2024-09-19 14:55 | disposition home or self-care (01) | LOC: HO.BBR 14:54 | PROVIDERS: PCP Internal Medicine; Visit Provider Internal Medicine | DX: Z13.89 Encounter for screening for other disorder (principal) ==

== ENCOUNTER 2024-11-28 14:55 | Outpatient (REF) | payer OTHER, SELFPAY ==
[2024-11-28 16:10] LABS: Iron 126 mcg/dL (45-160); Percent Iron Saturation 50 % (15-50); Total Iron Binding Capacity 251 mcg/dL (228-428); Unsaturated Iron Binding 125 ug/dL
[2024-11-28 16:23] LABS: Ferritin 15 ng/mL (20-250)
--- OUTSIDE RECORDS SUMMARY | 2024-11-28 16:29 | XMS_ITS ---
Author Organization [facility] Address [address] [place] [id number] Care Team Providers Care [employer] Healer Name Role Phone Nate Loyola MD Primary Care Provider Jake Temple [phone] ALLERGIES No Known Allergies REASON FOR VISIT Patient presents today for herediatry hemochromatosis MEDICATIONS Medication SIG (Take, Route, Fr equency, Duration) Notes Start Date End Date Status Omeprazole 20 MG TAKE 1 CAPSULE BY [facility] EVERY DAY Oral for 90 Active ibuprofen as needed Active PROBLEMS Problem Type ICD Code Onset Dates Problem Status W/U Status Risk SNOMED Code Notes Problem Chronic GERD (K21.9) Active confirmed Gastroesophagea l reflux disease (disorder) (611882519) VITAL SIGNS BMI 25.28 kg/m2 02/27/2024 Blood pressure systolic 00 mm Hg 02/27/20 24 Blood pressure diastolic 00 mm Hg 024 Height 70.75 in 02/27/2024 Weight 180 lbs 02/27/2024 Encounters Encounter Location Date Provider Diagnosis [facility] [address] [place] [phone] 02/27/2024 Jake Blue Chronic GERD K21.9 ; Hereditary hemochromatosis E83.110 ; Encounter for screening for malignant neoplasm of colon Z12.11 and History of adenomatous polyp of colon Z86.010 ASSESSMENTS Encounter Date Diagnosis Assessment Notes Treatment Notes Treatment Clinical Notes 02/27/2024 Chronic GERD (ICD-10 - K21.9) 02/27/2024 Hereditary hemochromatosis (ICD-10 - E83.110) Continue the phlebotomies every 2 months 02/27/2024 Encounter for screening for malignant neoplasm of colon (ICD-10 - Z12.11) 02/27/2024 History of adenomatous polyp of colon (ICD-10 - Z86.010) PLAN OF TREATMENT Treatment Notes Assessment Notes Hereditary hemochromatosis Continue the phlebotomies every 2 months Pending Test Test Name Order Date LIVER PROFILE 02/27/2024 CBC w DIFF 02/27/2024 ALPHA-FETOPROTEIN,TUMOR MARKER Prothrombin Time INR 02/27/2024 Liver Fibrosis Pnl 02/27/2024 US abdomen comp w elastography Future Test Test Name Order Date UPPER GI ENDOSCOPY 02/27/2024 COLONOSCOPY 02/27/2024 Next Appt Details Follow Up: prn, Reason: Provider Name:Jake Blue , 04/09/2025 04:00:00 PM, [address] [facility], [address], [place], [phone], Progress Notes * Examination Category Sub-Category Detail Notes General Examination GENERAL APPEARANCE: pleasant , well nourished, well developed, in no acute distress EYES: sclera non-icteric NECK/THYROID: no cervical lymphade nopathy, neck supple HEART: S1, S2 normal LUNGS: clear to auscultatio n bilaterally ABDOMEN: normal bowel sounds, no guarding or rigidity, no hepatosplenomegaly, no masses palpable, soft, nontender, nondistended. NEUROLOGIC: alert and oriented SKIN: nonjaundiced, no spi chris angiomata. EXTREMITIES: no edema ORAL CAVITY: mucosa moist
--- OUTSIDE RECORDS SUMMARY | 2024-11-28 16:29 | XMS_ITS ---
Author Organization [facility] Address [address] [place] [address] Care Team Providers Care Cake Decorator Name Role Phone Nate Loyola MD Primary Care Provider Jake Temple [phone] REASON FOR VISIT screening,gerd, hx polyps PROBLEMS Problem Type ICD Code Onset Dates Problem Status W/U Status Risk SNOMED Code Notes Problem Diverticulosis of large intestine without perforation or abscess without bleeding (K57.30) Active confirmed Diverticul ar disease of colon (945316996) Problem Gastritis without bleeding, unspecified chronicity, unspecified gastritis type (K29.70) Active confirmed Gastroduodeniti s (046199086) Problem Gastro-esophageal reflux disease without esophagitis (K21.9) Active confirmed Gastro-esophage al reflux disease without esophagitis (872012547) Encounters Encounter Location Date Provider Diagnosis [facility] Outpatient [address], [place] [id number] 06/03/2024 Jake Blue Colon cancer scree erasmo Z12.11 ; Colon polyps K63.5 ; Diverticulosis of large intestine without perforation or abscess without bleeding K57.30 ; Other hemorrhoids K64.8 ; Hiatal hernia K44.9 ; Gastritis without bleeding, unspecified chronicity, unspecified gastritis type K29.70 and Gastro-esophageal reflux disease without esophagitis K21.9 ASSESSMENTS Encounter Date Diagnosis Assessment Notes Treatment Notes Treatment Clinical Notes 06/03/2024 Colon cancer screening (ICD-10 - Z12.11) 06/03/2024 Colon polyps (ICD-10 - K63.5) 06/03/2024 Diverticulosis of large intestine without perforation or abscess without bleeding (ICD-10 - K57.30) 06/03/2024 Other hemorrhoids (ICD-10 - K64.8) 06/03/2024 Hiatal hernia (ICD-1 0 - K44.9) 06/03/2024 Gastritis without bleeding, unspecified chronicity, unspecified gastritis type (ICD-10 - K29.70) 06/03/2024 Gastro-esophageal reflux disease without esophagitis (ICD-10 - K21.9) PLAN OF TREATMENT Next Appt Details Provider Name:Jake Blue , 04/09/2025 04:00:00 PM, [address] [place] [address], [address], [place], [phone],
--- OUTSIDE RECORDS SUMMARY | 2024-11-28 16:29 | XMS_ITS | Patient Health Record ---
Author Organization [facility] Address [address] [place] [address] Care Team Providers Care Plant Hr Manager Name Role Phone Nate Loyola MD Primary Care Provider Helena johnson BlueJake Unavailable [phone] ALLERGIES No Known Allergies RESULTS Component Value Reference Range Notes Therapeutic Phlebotomy Reviewed date:01/04/2024 11:10:00 AM Interpretation: Performing Lab:[facility], [address] [place] [phone] Notes/Report: THER/HGB 13.4 14.0-18.0 g/dL THER/HCT TNP 42.0-52.0 % Therapeutic Phlebotomy Phlebotomy Performed 500 mls drawn on 01/03/24. Please note that a copy of this report has been sent to the Primary Care Physician, the ordering physician and any physician designated by patient request. Therapeutic Phlebotomy Reviewed date:03/06/2024 02:43:50 PM Interpretation: Performing Lab:[facility], [address] [place] [phone] Notes/Report: THER/HGB 12.6 14.0-18.0 g/dL THER/HCT TNP 42.0-52.0 % Therapeutic Phlebotomy Phlebotomy Performed 500 mls drawn on 03/05/24. Please note that a copy of this report has been sent to the Primary Care Physician, the ordering physician and any physician designated by patient request. US abdomen comp w elastograp hy Reviewed date:06/02/2024 10:31:54 PM Interpretation: Performing Lab: Notes/Report: [address] [address] Ultrasound Report Signed Patient: Elías Marie MR#: [id number] : 1970 Acct:[id number] Age/Sex: 53 / M ADM Date: 03/08/24 Loc: HO.US Attending Dr: Jake Blue MD Ordering Physician: Jake Blue Date of Service: 03/08/24 Procedure(s): US abdomen comp w elastography Accession Number(s): [id number] cc: Nate Loyola MD; Jake Blue EXAMINATION: US COMPLETE ABDOMEN WITH LIVER ELASTOGRAPHY CLINICAL INFORMATION: Hereditary hemochromatosis. COMPARISON: Abdominal ultrasound dated 12/28/2022; CT abdomen and pelvis dated 08/22/2011. TECHNIQUE: Real-time imaging of the abdominal viscera. Noninvasive ultrasound liver fibrosis assessment is performed using Anabel ElastPQ point quantification shear wave elastography (2D-SWE) with a C5-2 MHz transducer. Multiple elastography samples are obtained. FINDINGS: PANCREAS: Normal. The visualized pancreatic head and body are normal in appearance. The remainder of the pancreas is obscured from visualization by the overlying bowel gas. ABDOMINAL AORTA: The proximal, middle, and distal aortic segments are normal in caliber. INFERIOR VENA CAVA: Visualized portions are normal. LIVER: The liver demonstrates normal size and contour. There is heterogeneous increase in echotexture, with a geographic pattern. No focal lesion or intrahepatic biliary duct dilatation. The right lobe measures 12.4 cm in length. The left lobe measures 12.0 cm in length. Portal flow is towards the liver (hepatopetal). Shear wave liver elastography median stiffness is 1.36 m/s (reference: normal median stiffness is 1.3 m/s or less). IQR/median stiffness to assess sampling precision is 0.13 (reference: good quality data set is IQR/median stiffness of 0.15 or less). GALLBLADDER: Normal. The gallbladder is physiologically distended without evidence of stones, sludge, polyps, wall thickening or pericholecystic fluid. COMMON BILE DUCT: Normal in caliber measuring 0.4 cm in diameter. RIGHT KIDNEY: Normal. No hydronephrosis. No renal calculi or focal parenchymal lesions. The kidney measures 9.3 cm in maximum dimension. LEFT KIDNEY: At the interpolar aspect, a 1.0 cm benign, simple cyst is seen, for which no imaging follow-up is recommended.. No hydronephrosis. No renal calculi or focal parenchymal lesions. The kidney measures 10.8 cm in maximum dimension. SPLEEN: Normal. The spleen measures 11.4 cm in maximum dimension. FREE FLUID: None. US/US abdomen comp w elastography IMPRESSION: 1. There is increased hepatic echotexture with a geographic pattern. This ultrasound appearance favors fatty infiltration. If further assessment for hematochromatosis is desired, consider abdominal MRI characterization. No focal hepatic mass or intrahepatic biliary dilatation is seen. 2. Liver elastography: In the absence of other known clinical signs, measurements rule out compensated advanced chronic liver disease. If there are known clinical signs, further testing may be needed for confirmation. REFERENCE: Society of Radiologists in Ultrasound Liver Stiffness Thresholds (2020): LIVER STIFFNESS THRESHOLDS: *Liver Stiffness equal or less than 1.3 m/s: High probability of being normal. *Liver Stiffness less than 1.7 m/s: In the absence of other known clinical signs, rules out compensated advanced chronic liver disease. *Liver Stiffness 1.7-2.1 m/s: Suggestive of compensated advanced chronic liver disease but need further test for confirmation. *Liver Stiffness over 2.1 m/s: Rules in compensated advanced chronic liver disease. *Liver Stiffness over 2.4 m/s: Suggestive of clinically significant portal hypertension. QUALITY OF DATA SET: *IQR/Median value equal or less than 0.15 implies a quality data set. *IQR/Median value over 0.15 implies a poor quality data set. SIGNIFICANT CHANGE FROM PRIOR EXAM: Significant change if liver stiffness measurement is 10% or greater from prior exam. OTHER CONSIDERATIONS: The stage of liver fibrosis may be overestimated in the setting of acute hepatitis, liver inflammation, elevated liver function tests, hepatic vascular congestion, obstructive cholestasis, non-fasting state, and infiltrative diseases such as amyloidosis and lymphoma. In some patients with NAFLD, the liver stiffness thresholds for compensated advanced chronic liver disease may be lower. In causes other than viral hepatitis and NAFLD, liver stiffness thresholds are not well established. Dictated By: Greg Stuart MD Signed By: <Electronically signed by Greg Stuart MD in OV> 03/12/24 1327 DD/ 0850 TD/TT: Pastry Cook Apprentice: SAYRA IRON PROFILE Reviewed date:05/08/2024 05:41:52 PM Interpretation: Performing Lab:[facility], [address] [place] [phone] Notes/Report: Iron 156 45-160 mcg/dL Total Iron Binding Capacity 271 228-428 mcg/dL Percent Iron Saturation 58 15-50 % Unsaturated Iron Binding 115 Ferritin Reviewed date:06/02/2024 10:32:22 PM Interpretation: Performing Lab:[facility], [address] [place] [phone] Notes/Report: Ferritin 13 20-250 ng/mL Therapeutic Phlebotomy Reviewed date:05/09/2024 05:26:38 PM Interpretation: Performing Lab:[facility], [address] [place] [phone] Notes/Report: THER/HGB 12.5 14.0-18.0 g/dL THER/HCT TNP 42.0-52.0 % Therapeutic Phlebotomy Phlebotomy Performed 500 mls drawn on 05/08/24. Please note that a copy of this report has been sent to the Primary Care Physician, the ordering physician and any physician designated by patient request. Pathology (Not yet reviewed by provider) Interpretation: Performing Lab:[facility], [address] [place] [phone] Notes/Report: Complete Blood Count Auto Di ff Reviewed date:06/13/2024 08:58:13 AM Interpretation: Performing Lab:[facility], [address] [place] [phone] Notes/Report: White Blood Count 4.8 4.8-10.8 X10*3/uL Red Blood Count 4.48 4.60-5.80 X10*6/uL Hemoglobin 14.4 14.0-18.0 g/dl Hematocrit 42.3 42.0-52.0 % Mean Corpuscular Volume 94.4 80.0-98.0 fL Mean Corpuscular Hemoglobin 32.1 27.0-33.0 pg Mean Corpuscular HGB Conc 34.0 31.0-36.0 g/dl Red Cell Distribution Width 14.1 11.0-16.0 % Platelet Count 195 160-400 X10*3/uL Mean Platelet Volume 12.1 9.4-12.4 fL Neutrophils Percent Auto 51.6 45-73 % Imm Gran Pct Auto 0.2 0.0-0.4 % Lymphocytes Percent Auto 29.0 20-40 % Monocytes Percent Auto 11.3 2-11 % Eosinophils Percent Auto 7.1 0-4 % Basophils Percent Auto 0.8 0-2 % NRBC Pct Auto 0.0 0.0-0.2 /100WBC Neutrophils Absolute Auto 2.5 2.0-8.3 x10*3/u L Imm Gran Abs Auto 0.01 0.00-0.03 X10*3/uL Lymphocytes Absolute Auto 1.4 1.2-4.9 X10*3/u L Monocytes Absolute Auto 0.5 0.1-1.2 X10*3/uL Eosinophils Absolute Auto 0.3 0.0-0.4 X10*3/u L Basophils Absolute Auto 0.0 0.0-0.2 X10*3/uL NRBC Abs Auto 0.000 0.0-0.012 X10*3/uL Prothrombin Time INR Reviewed date:06/13/2024 08:58:21 AM Interpretation: Performing Lab:[address] [phone] Notes/Report: Prothrombin Time 10.8 11.1-13.3 SEC INTERNATIONAL NORM RATIO 0.9 0.9-1.1 INTERNATIONAL NORMALIZED RATIO (INR) REFERENCE RANGES Reference Range For patients not on anticoagulant therapy: 0.9 - 1.1 INR ranges for oral anticoagulant therapy: For prevention and treatment of venous thrombosis and pulmonary embolism: 2.0 - 3.0 For acute myocardial infarction with aspirin therapy: 2.0 - 3.0 For acute myocardial infarction without aspirin therapy: 3.0 - 4.0 For patients with mechanical prosthetic heart valves: 2.5 - 3.5 Liver Panel Reviewed date:06/13/2024 08:58:31 AM Interpretation: Performing Lab:[address] [phone] Notes/Report: Bilirubin Total 0.9 0.0-1.0 mg/dL Bilirubin Direct 0.3 0.0-0.5 mg/dL Aspartate Amino Transferase 22 5-37 U/L Alanine Aminotransferase 24 0-40 U/L Total Protein 7.9 6.5-8.0 g/dL Albumin Level 4.9 3.5-5.0 g/dL Alkaline Phosphatase 52 39-117 U/L Alpha Fetoprotein Reviewed date:06/21/2024 06:59:03 PM Interpretation: Performing Lab:[facility], [address] [place] [phone] Notes/Report: Alpha Fetoprotein 1.8 <6.1 ng/mL This test was performed using the Amberly [place] chemiluminescent method. Values obtained from different assay methods cannot be used interchangeably. AFP levels, regardless of value, should not be interpreted as absolute evidence of the presence or absence of disease. THIS TEST WAS PERFORMED AT: [facility] [address] [place] [phone] LEDA HANNAH MD Liver Fibrosis Pnl Reviewed date:06/21/2024 06:59:11 PM Interpretation: Performing Lab:[facility], [address] [place] [phone] Notes/Report: Liver Fibrosis Score 0.26 Liver Fibrosis Stage F0-F1 Liver Fibrosis Interpretation SEE NOTE no fibrosis Fibro Test Score (f) Metavir Score f>=0 and f<=0.21 : F0 (no fibrosis) f>0.21 and f<=0.27 : F0-F1 (no fibrosis) f>0.27 and f<=0.31 : F1 (minimal fibrosis) f>0.31 and f<=0.48 : F1-F2 (minimal fibrosis) f>0.48 and f<=0.58 : F2 (moderate fibrosis) f>0.58 and f<=0.72 : F3 (advanced fibrosis) f>0.72 and f<=0.74 : F3-F4 (advanced fibrosis) f>0.74 and f<=1.00 : F4 (severe fibrosis) Nec Inflam Act Score 0.09 Nec Inflam Act Grade A0 Nec Inflam Act Interpretation SEE NOTE no activity ActiTest Score (a) Metavir Score a>=0 and a<=0.17 : A0 (no activity) a>0.17 and a<=0.29 : A0-A1 (no activity) a>0.29 and a<=0.36 : A1 (minimal activity) a>0.36 and a<=0.52 : A1-A2 (minimal activity) a>0.52 and a<=0.60 : A2 (significant activity) a>0.60 and a<=0.62 : A2-A3 (significant activity) a>0.62 and a<=1.00 : A3 (severe activity) KVP-Abpxi-8-Macroglobulin 178 106-279 mg/dL FIB-Haptoglobin 71 43-212 mg/dL FIB-Apolipoprotein A1 161 94-176 mg/dL FIB-Total Bilirubin 0.8 0.2-1.2 mg/dL FIB-GGT 17 3-85 U/L FIB-ALT 22 9-46 U/L Reference ID [id number] Footnote SEE NOTE The reliability of results is dependent on compliance with the preanalytical and analytical conditions recommended by 2CRisk. The tests have to be deferred for: acute hemolysis, acute hepatitis, acute inflammation, extra hepatic cholestasis. The advice of a specialist should be sought for interpretation in chronic hemolysis and Gilbert's syndrome. The test interpretation is not validated in liver transplant patients. Isolated extreme values of one of the components should lead to caution in interpreting the results. In case of discordance between a biopsy result and a test, it is recommended to seek the advice of a specialist. The causes of these discordances could be due to a flaw of the test or to a flaw in the biopsy: i.e. a liver biopsy has a 33% variability rate for one fibrosis stage. FibroTest is interpretable for chronic hepatitis B and C, alcoholic and non alcoholic steatosis. ActiTest is interpretable for chronic hepatitis B and C. The performance characteristics have been determined by [facility]. It has not been cleared or approved by the U.S. Food and Drug Administration. Performance characteristics refer to the analytical performance of the test. [employer], [employer], the associated logo, [employer]Star[employer] and all associated [employer] king are the registered trademarks of [employer]. All third green party king - (R) and (TM) - are the property of their respective owners. (C) [id number] [employer]. All rights reserved. THIS TEST WAS PERFORMED AT: [facility] [address] [address] [address] TRACY STANTON MD,PHD,MYNOR Therapeutic Phlebotomy Reviewed date:07/11/2024 09:12:07 AM Interpretation: Performing Lab:[facility], [address] [place] [phone] Notes/Report: THER/HGB 14.9 14.0-18.0 g/dL THER/HCT TNP 42.0-52.0 % Therapeutic Phlebotomy Phlebotomy Performed 500 mls drawn on 07/10/24. Please note that a copy of this report has been sent to the Primary Care Physician, the ordering physician and any physician designated by patient request. Therapeutic Phlebotomy Reviewed date:09/20/2024 05:15:19 PM Interpretation: Performing Lab:[facility], [address] [place] [phone] Notes/Report: THER/HGB 14.6 14.0-18.0 g/dL THER/HCT TNP 42.0-52.0 % Therapeutic Phlebotomy Phlebotomy Performed 500 mls drawn on 09/19/24. Please note that a copy of this report has been sent to the Primary Care Physician, the ordering physician and any physician designated by patient request. IRON PROFILE (Not yet review ed by provider) Interpretation: Performing Lab:[facility], [address] [place] [phone] Notes/Report: Iron 126 45-160 mcg/dL Total Iron Binding Capacity 251 228-428 mcg/dL Percent Iron Saturation 50 15-50 % Unsaturated Iron Binding 125 Ferritin (Not yet reviewed b y provider) Interpretation: Performing Lab:[facility], [address] [place] [phone] Notes/Report: Ferritin 15 20-250 ng/mL REASON FOR REFERRAL No Information MEDICATIONS Medication SIG (Take, Route, Fr equency, Duration) Notes Start Date End Date Status Omeprazole 20 MG TAKE 1 CAPSULE BY [facility] EVERY DAY Oral for 90 Active ibuprofen as needed Active IMMUNIZATIONS Vaccine Route Administration Date Status Comme nts Influenza Unknown 08/27/2020 Administered Influenza Unknown 04/24/2019 Refused SOCIAL HISTORY Sex Assigned At : Social History Observation Description Sex Assigned At Unknown PROBLEMS Problem Type ICD Code Onset Dates Problem Status W/U Status Risk SNOMED Code Notes Problem Gastro-esophageal reflux disease without esophagitis (K21.9) Active confirmed Gastro-esophage al reflux disease without esophagitis (168554783) Problem Encounter for screening for malignant neoplasm of colon (Z12.11) Active confirmed 570963127 Problem History of adenomatous polyp of colon (Z86.010) Active confirmed History o f adenomatous polyp of colon (807519822) Problem Hereditary hemochromatosis (E83.110) Active confirmed 95805627 Problem Diverticulosis of large intestine without perforation or abscess without bleeding (K57.30) Active confirmed Diverticul ar disease of colon (198044789) Problem Gastritis without bleeding, unspecified chronicity, unspecified gastritis type (K29.70) Active confirmed Gastroduodeniti s (062167444) Problem Chronic GERD (K21.9) Active confirmed Gastroesophagea l reflux disease (disorder) (138107679) VITAL SIGNS Blood pressure diastolic 00 mm Hg 02/27/2024 Height 70.75 in 02/27/2024 Blood pressure systolic 00 mm Hg 02/27/2024 Weight 180 lbs 02/27/2024 BMI 25.28 kg/m2 02/27/2024 Encounters Encounter Location Date Provider Diagnosis [facility] [address] [place], [place] [id number] 06/03/2024 Jake Blue Colon cancer screeni ng Z12.11 ; Colon polyps K63.5 ; Diverticulosis of large intestine without perforation or abscess without bleeding K57.30 ; Other hemorrhoids K64.8 ; Hiatal hernia K44.9 ; Gastritis without bleeding, unspecified chronicity, unspecified gastritis type K29.70 and Gastro-esophageal reflux disease without esophagitis K21.9 [facility] [address] [place] [address] 02/27/2024 Jake Blue Chronic GERD K21.9 ; Hereditary hemochromatosis E83.110 ; Encounter for screening for malignant neoplasm of colon Z12.11 and History of adenomatous polyp of colon Z86.010 [facility] [address] [place] [address] 12/19/2023 Jake Blue ASSESSMENTS Encounter Date Diagnosis Assessment Notes Treatment Notes Treatment Clinical Notes 06/03/2024 Colon cancer screening (ICD-10 - Z12.11) 06/03/2024 Colon polyps (ICD-10 - K63.5) 02/27/2024 Hereditary hemochromatosis (ICD-10 - E83.110) Continue the phlebotomies every 2 months 02/27/2024 Chronic GERD (ICD-10 - K21.9) 06/03/2024 Diverticulosis of large intestine without perforation or abscess without bleeding (ICD-10 - K57.30) 02/27/2024 Encounter for screening for malignant neoplasm of colon (ICD-10 - Z12.11) 06/03/2024 Other hemorrhoids (ICD-10 - K64.8) 02/27/2024 History of adenomatous polyp of colon (ICD-10 - Z86.010) 06/03/2024 Hiatal hernia (ICD-1 0 - K44.9) 06/03/2024 Gastritis without bleeding, unspecified chronicity, unspecified gastritis type (ICD-10 - K29.70) 06/03/2024 Gastro-esophageal reflux disease without esophagitis (ICD-10 - K21.9) PLAN OF TREATMENT Pending Test Test Name Order Date LIVER PROFILE 12/02/2022 LIVER PROFILE 02/27/2024 CBC w DIFF 12/02/2022 CBC w DIFF 02/27/2024 PROTHROMBIN TIME (PT, INR) 09/25/2020 ALPHA-FETOPROTEIN,TUMOR MARKER 3 ALPHA-FETOPROTEIN,TUMOR MARKER 0 ALPHA-FETOPROTEIN,TUMOR MARKER 4 US ABD 09/25/2020 US ABD 12/02/2022 Prothrombin Time INR 12/02/2022 Prothrombin Time INR 02/27/2024 IRON PROFILE 11/28/2024 Ferritin 11/28/2024 Liver Fibrosis Pnl 12/02/2022 Liver Fibrosis Pnl 02/27/2024 Pathology 06/03/2024 US abdomen comp w elastography 4 Future Test Test Name Order Date COLONOSCOPY 04/24/2019 COLONOSCOPY 09/25/2020 UPPER GI ENDOSCOPY 02/27/2024 COLONOSCOPY 02/27/2024 Next Appt Details Provider Name:Jake Blue , 04/09/2025 04:00:00 PM, [address], [address], [place], [address], Insurance Providers Payer Name Payer Address Payer Phone Subscriber Number Group Number Insured Name Patient Relationship to Insured Coverage Start Date Coverage End Date [facility] [address] [place] [address] [phone] [id number] ELÍAS MARIE Self - patient is the insured MEDICAL (GENERAL) HISTORY Medical History History ICD Code Genetic hemochromatosis-live r bx in 2005 with iron overload--no fibrosis-Rx'd with phlebotomy every 3 mos--05/2013 Iron 194, sat 80%, and ferritin 44, normal LFT's. His phlebotomy schedule was increased to every 2 months in 2018 due to an elevated iron level and iron saturation, although his ferritin was in the normal range Denies OK,DM,CVA,Lung disease,renal dise ase Screening colonoscopy in Jun--> 1cm tubulovillous adenoma removed from the transverse colon with areas of high-grade dysplasia, but without invasive cancer; he also had 2 small tubular adenomas removed from the ascending colon Colonoscopy in October of 2020 with a s mall hyperplastic polyp removed Surgical History Surgery Date(Month/Year)
--- OUTSIDE RECORDS SUMMARY | 2024-11-28 16:29 | XMS_ITS ---
Author Organization [facility] Address [address] [place] [address] Care Team Providers Care Associate Automation Engineer Name Role Phone Nate Loyola MD Primary Care Provider Unavaila Jake Escalera [phone] REASON FOR VISIT new lab orders Encounters Encounter Location Date Provider Diagnosis [facility] [address] [place] [address] 12/19/2023 Jake Blue PLAN OF TREATMENT Next Appt Details Provider Name:Jake Blue , 04/09/2025 04:00:00 PM, [address] [facility], [address], [place], [address],
== END 2024-11-28 14:56 | disposition home or self-care (01) ==
LOC: HO.BBR 14:55
PROVIDERS: Visit Provider Internal Medicine
DX: E83.110 Hereditary hemochromatosis (principal)
CPT/HCPCS: 36415; 82728; 83540

== ENCOUNTER 2024-12-10 06:11 | Outpatient (REF) | payer OTHER, SELFPAY ==
--- OUTSIDE RECORDS SUMMARY | 2024-12-10 06:15 | XMS_ITS ---
Author Organization [facility] Address [address] [place] [address] Care Team Providers Care Telephone Order Supervisor Name Role Phone Nate Loyola MD Primary Care Provider Jake Temple [phone] ALLERGIES No Known Allergies REASON FOR VISIT Patient presents today for herediatry hemochromatosis MEDICATIONS Medication SIG (Take, Route, Fr equency, Duration) Notes Start Date End Date Status Omeprazole 20 MG TAKE 1 CAPSULE BY [facility] EVERY DAY Oral for 90 Active ibuprofen as needed Active PROBLEMS Problem Type ICD Code Onset Dates Problem Status W/U Status Risk SNOMED Code Notes Problem Chronic GERD (K21.9) Active confirmed Gastroesophagea l reflux disease (disorder) (342080061) VITAL SIGNS BMI 25.28 kg/m2 02/27/2024 Blood pressure systolic 00 mm Hg 02/27/20 24 Blood pressure diastolic 00 mm Hg 024 Height 70.75 in 02/27/2024 Weight 180 lbs 02/27/2024 Encounters Encounter Location Date Provider Diagnosis [facility] [address] [place] [address] 02/27/2024 Jake Blue Chronic GERD K21.9 ; [...] Name:Jake Blue , 04/09/2025 04:00:00 PM, [address] [facility], [address], [place], [address], Progress Notes * Examination Category Sub-Category Detail [...]
--- OUTSIDE RECORDS SUMMARY | 2024-12-10 06:15 | XMS_ITS ---
Author Organization [facility] Address [address] [place] [address] Care Team Providers Care Mechanical Meter Tester Name Role Phone Nate Loyola MD Primary Care Provider Jake Temple [phone] REASON FOR VISIT screening,gerd, hx polyps PROBLEMS Problem Type ICD Code Onset Dates Problem Status W/U Status Risk SNOMED Code Notes Problem Diverticulosis of large intestine without perforation or abscess without bleeding (K57.30) Active confirmed Diverticul ar disease of colon (436716940) Problem Gastritis without bleeding, unspecified chronicity, unspecified gastritis type (K29.70) Active confirmed Gastroduodeniti s (460627463) Problem Gastro-esophageal reflux disease without esophagitis (K21.9) Active confirmed Gastro-esophage al reflux disease without esophagitis (470145102) Encounters Encounter Location Date Provider Diagnosis [facility] Out[facility] [address] [place], [place] [phone] 06/03/2024 Jake Blue Colon cancer scree erasmo [...] Provider Name:Jake Blue , 04/09/2025 04:00:00 PM, [address] [place] [address], [address], [place], [address],
--- OUTSIDE RECORDS SUMMARY | 2024-12-10 06:15 | XMS_ITS ---
Author Organization [facility] Address [address] [place] [address] Care Team Providers Care Server Systems Administrator Name Role Phone Nate Loyola MD Primary Care Provider Unavaila Jake Escalera [phone] REASON FOR VISIT new lab orders Encounters Encounter Location Date Provider Diagnosis [facility] [address] [place] [address] 12/19/2023 Jake Blue PLAN OF TREATMENT Next Appt Details Provider Name:Jake Blue , 04/09/2025 04:00:00 PM, [address] [facility], [address], [place], [address],
--- OUTSIDE RECORDS SUMMARY | 2024-12-10 06:15 | XMS_ITS | Patient Health Record ---
Author Organization [facility] Address [address] [place] [address] Care Team Providers Care Geosciences Faculty Member Name Role Phone Nate Loyola MD Primary Care Provider Helena johnson BlueJake Unavailable [phone] ALLERGIES No Known Allergies RESULTS Component Value Reference Range Notes Therapeutic Phlebotomy Reviewed date:01/04/2024 11:10:00 AM Interpretation: Performing Lab:[facility], [address] [place] [phone] Notes/Report: THER/HGB 13.4 14.0-18.0 g/dL THER/HCT TNP 42.0-52.0 % Therapeutic Phlebotomy Phlebotomy Performed 500 mls drawn on 01/03/24. Please note that a copy of this report has been sent to the Primary Care Physician, the ordering physician and any physician designated by patient request. Therapeutic Phlebotomy Reviewed date:03/06/2024 02:43:50 PM Interpretation: Performing Lab:[facility], [address] [place] [phone] Notes/Report: THER/HGB 12.6 14.0-18.0 g/dL THER/HCT TNP 42.0-52.0 % Therapeutic Phlebotomy Phlebotomy Performed 500 mls drawn on 03/05/24. Please note that a copy of this report has been sent to the Primary Care Physician, the ordering physician and any physician designated by patient request. US abdomen comp w elastograp hy Reviewed date:06/02/2024 10:31:54 PM Interpretation: Performing Lab: Notes/Report: [address] [address] Ultrasound Report Signed Patient: Elías Marie MR#: [id number] : 1970 Acct:[id number] Age/Sex: 53 / M ADM Date: 03/08/24 Loc: HO.US Attending Dr: Jake Blue MD Ordering Physician: Jake Blue Date of Service: 03/08/24 Procedure(s): US abdomen comp w elastography Accession Number(s): [id number] cc: Nate Loyola MD; Jake Blue EXAMINATION: [...] in OV> 03/12/24 1327 DD/ 0850 TD/TT: Director Of Premium Seat Sales: SAYRA IRON PROFILE Reviewed date:05/08/2024 05:41:52 PM Interpretation: Performing Lab:[facility], [address] [place] [phone] Notes/Report: Iron 156 45-160 mcg/dL Total Iron Binding Capacity 271 228-428 mcg/dL Percent Iron Saturation 58 15-50 % Unsaturated Iron Binding 115 Ferritin Reviewed date:06/02/2024 10:32:22 PM Interpretation: Performing Lab:[facility], [address] [place] [phone] Notes/Report: Ferritin 13 20-250 ng/mL Therapeutic Phlebotomy Reviewed date:05/09/2024 05:26:38 PM Interpretation: Performing Lab:[facility], [address] [place] [phone] Notes/Report: THER/HGB 12.5 14.0-18.0 g/dL THER/HCT TNP 42.0-52.0 % Therapeutic Phlebotomy Phlebotomy Performed 500 mls drawn on 05/08/24. Please note that a copy of this report has been sent to the Primary Care Physician, the ordering physician and any physician designated by patient request. Pathology (Not yet reviewed by provider) Interpretation: Performing Lab:[facility], [address] [place] [phone] Notes/Report: Complete Blood Count Auto Di ff Reviewed date:06/13/2024 08:58:13 AM Interpretation: Performing Lab:[facility], [address] [place] [phone] Notes/Report: White Blood Count 4.8 4.8-10.8 X10*3/uL [...] INR Reviewed date:06/13/2024 08:58:21 AM Interpretation: Performing Lab:[address] [phone] Notes/Report: Prothrombin Time 10.8 11.1-13.3 [employer] [...] Panel Reviewed date:06/13/2024 08:58:31 AM Interpretation: Performing Lab:[address] [phone] Notes/Report: Bilirubin Total 0.9 0.0-1.0 mg/dL Bilirubin Direct 0.3 0.0-0.5 mg/dL Aspartate Amino Transferase 22 5-37 U/L Alanine Aminotransferase 24 0-40 U/L Total Protein 7.9 6.5-8.0 g/dL Albumin Level 4.9 3.5-5.0 g/dL Alkaline Phosphatase 52 39-117 U/L Alpha Fetoprotein Reviewed date:06/21/2024 06:59:03 PM Interpretation: Performing Lab:[facility], [address] [place] [phone] Notes/Report: Alpha Fetoprotein 1.8 <6.1 ng/mL This test was performed using the Amberly Westbrook chemiluminescent method. Values obtained from different assay methods cannot be used interchangeably. AFP levels, regardless of value, should not be interpreted as absolute evidence of the presence or absence of disease. THIS TEST WAS PERFORMED AT: [facility] [employer] [address] [place] [phone] LEDA HANNAH MD Liver Fibrosis Pnl Reviewed date:06/21/2024 06:59:11 PM Interpretation: Performing Lab:[facility], [address] [place] [phone] Notes/Report: Liver Fibrosis Score 0.26 Liver Fibrosis [...] a>0.62 and a<=1.00 : A3 (severe activity) IOO-Gjetw-7-Macroglobulin 178 106-279 mg/dL FIB-Haptoglobin 71 43-212 mg/dL FIB-Apolipoprotein A1 161 94-176 mg/dL FIB-Total Bilirubin 0.8 0.2-1.2 mg/dL FIB-GGT 17 3-85 U/L FIB-ALT 22 9-46 U/L Reference ID [id number] Footnote SEE NOTE The reliability of results is dependent on compliance with the preanalytical and analytical conditions recommended by [employer]. The tests have to be deferred for: [...] The performance characteristics have been determined by [employer] [facility]. It has not been cleared or approved by the U.S. Food and Drug Administration. Performance characteristics refer to the analytical performance of the test. [employer], [employer], the associated logo, [employer] and all associated [employer] are the registered trademarks of [employer]. All third democrat king - (R) and (TM) - are the property of their respective owners. (C) 8804-3262 [employer]. All rights reserved. THIS TEST WAS PERFORMED AT: [employer] [facility] [place] [address] [place] [address] TRACY STANTON MD,PHD,MYNOR Therapeutic Phlebotomy Reviewed date:07/11/2024 09:12:07 AM Interpretation: Performing Lab:[facility], [address] [place] [phone] Notes/Report: THER/HGB 14.9 14.0-18.0 g/dL THER/HCT TNP 42.0-52.0 % Therapeutic Phlebotomy Phlebotomy Performed 500 mls drawn on 07/10/24. Please note that a copy of this report has been sent to the Primary Care Physician, the ordering physician and any physician designated by patient request. Therapeutic Phlebotomy Reviewed date:09/20/2024 05:15:19 PM Interpretation: Performing Lab:[facility], [address] [place] [phone] Notes/Report: THER/HGB 14.6 14.0-18.0 g/dL THER/HCT TNP 42.0-52.0 % Therapeutic Phlebotomy Phlebotomy Performed 500 mls drawn on 09/19/24. Please note that a copy of this report has been sent to the Primary Care Physician, the ordering physician and any physician designated by patient request. IRON PROFILE Reviewed date:12/01/2024 12:09:19 PM Interpretation: Performing Lab:[facility], [address] [place] [phone] Notes/Report: Iron 126 45-160 mcg/dL Total Iron Binding Capacity 251 228-428 mcg/dL Percent Iron Saturation 50 15-50 % Unsaturated Iron Binding 125 Ferritin Reviewed date:12/01/2024 12:09:29 PM Interpretation: Performing Lab:[facility], [address] [place] [phone] Notes/Report: Ferritin 15 20-250 ng/mL Therapeutic Phlebotomy Reviewed date:12/01/2024 12:10:04 PM Interpretation: Performing Lab:[facility], [address] [place] [phone] Notes/Report: THER/HGB 14.5 14.0-18.0 g/dL THER/HCT TNP 42.0-52.0 % Therapeutic Phlebotomy Phlebotomy Performed 500 mls drawn on 11/28/24. Please note that a copy of this report has been sent to the Primary Care Physician, the ordering physician and any physician designated by patient request. REASON FOR REFERRAL No Information MEDICATIONS Medication SIG (Take, Route, Fr equency, Duration) Notes Start Date End Date Status Omeprazole 20 MG TAKE 1 CAPSULE BY [facility] EVERY DAY Oral for 90 Active ibuprofen [...] confirmed Gastro-esophage al reflux disease without esophagitis (382730860) Problem Encounter for screening for malignant neoplasm of colon (Z12.11) Active confirmed 880820470 Problem History of adenomatous polyp of colon (Z86.010) Active confirmed History o f adenomatous polyp of colon (187524099) Problem Hereditary hemochromatosis (E83.110) Active confirmed 93296501 Problem Diverticulosis of large intestine without perforation or abscess without bleeding (K57.30) Active confirmed Diverticul ar disease of colon (209369283) Problem Gastritis without bleeding, unspecified chronicity, unspecified gastritis type (K29.70) Active confirmed Gastroduodeniti s (086584447) Problem Chronic GERD (K21.9) Active confirmed Gastroesophagea l reflux disease (disorder) (877991454) VITAL SIGNS Blood pressure diastolic 00 mm Hg 02/27/2024 Height 70.75 in 02/27/2024 Blood pressure systolic 00 mm Hg 02/27/2024 Weight 180 lbs 02/27/2024 BMI 25.28 kg/m2 02/27/2024 Encounters Encounter Location Date Provider Diagnosis [facility] [address] [place], [place] [phone] 06/03/2024 Jake Blue Colon cancer screeni ng Z12.11 ; Colon polyps K63.5 ; Diverticulosis of large intestine without perforation or abscess without bleeding K57.30 ; Other hemorrhoids K64.8 ; Hiatal hernia K44.9 ; Gastritis without bleeding, unspecified chronicity, unspecified gastritis type K29.70 and Gastro-esophageal reflux disease without esophagitis K21.9 [facility] [address] [place] [address] 02/27/2024 Jake Blue Chronic GERD K21.9 ; Hereditary hemochromatosis E83.110 ; Encounter for screening for malignant neoplasm of colon Z12.11 and History of adenomatous polyp of colon Z86.010 [facility] [address] [place] [address] 12/19/2023 Jake Blue ASSESSMENTS Encounter Date Diagnosis [...] Time INR 12/02/2022 Prothrombin Time INR 02/27/2024 Liver Fibrosis Pnl 12/02/2022 Liver Fibrosis Pnl 02/27/2024 Pathology 06/03/2024 US abdomen comp w elastography 4 Future Test Test Name Order Date COLONOSCOPY 04/24/2019 COLONOSCOPY 09/25/2020 UPPER GI ENDOSCOPY 02/27/2024 COLONOSCOPY 02/27/2024 Next Appt Details Provider Name:Jake Blue , 04/09/2025 04:00:00 PM, [address], [address], [place], [address], Insurance Providers Payer Name Payer Address Payer Phone Subscriber Number Group Number Insured Name Patient Relationship to Insured Coverage Start Date Coverage End Date [facility] [address] [place] [address] [id number] ELÍAS MARIE Self - patient is the [...] ferritin was in the normal range Denies MD,DM,CVA,Lung disease,renal dise ase Screening colonoscopy in Jun--> 1cm tubulovillous adenoma removed from the transverse colon with areas of high-grade dysplasia, but without invasive cancer; he also had 2 small tubular adenomas removed from the ascending colon Colonoscopy in October of 2020 with a s mall hyperplastic polyp removed Surgical History Surgery Date(Month/Year)
[2024-12-10 06:26] LABS: MANUAL DIFF FLAG NO
[2024-12-10 07:02] LABS: Basophils Percent Auto 0.7 % (0-2); Eosinophils Absolute Auto 0.3 X10*3/uL (0.0-0.4); Eosinophils Percent Auto 7.5 % (0-4); Hematocrit 40.2 % (42.0-52.0); Hemoglobin 14.4 g/dl (14.0-18.0); Imm Gran Abs Auto 0.01 X10*3/uL (0.00-0.03); Imm Gran Pct Auto 0.2 % (0.0-0.4); Lymphocytes Absolute Auto 1.4 X10*3/uL (1.2-4.9); Lymphocytes Percent Auto 31.3 % (20-40); Mean Corpuscular HGB Conc 35.8 g/dl (31.0-36.0); Mean Platelet Volume 11.5 fL (9.4-12.4); Monocytes Absolute Auto 0.5 X10*3/uL (0.1-1.2); Monocytes Percent Auto 10.8 % (2-11); Neutrophils Absolute Auto 2.3 x10*3/uL (2.0-8.3); Neutrophils Percent Auto 49.5 % (45-73); Platelet Count 195 X10*3/uL (160-400); Red Blood Count 4.37 X10*6/uL (4.60-5.80); Red Cell Distribution Width 13.8 % (11.0-16.0); White Blood Count 4.5 X10*3/uL (4.8-10.8)
[2024-12-10 07:10] LABS: Appearance Urine Clear; Color Urine Yellow; Glucose Urine UA Negative (Negative); Leukocyte Esterase Urine Negative (Negative); Nitrite Urine Negative (Negative); Urine Blood Negative (Negative); Urine Ketones Negative (Negative); Urine Protein Negative (Neg-Trace)
[2024-12-10 08:02] LABS: Alanine Aminotransferase 32 U/L (0-40); Albumin Level 4.7 g/dL (3.5-5.0); Alkaline Phosphatase 54 U/L (39-117); Anion Gap 9 (12-20); Aspartate Amino Transferase 27 U/L (5-37); Bilirubin Total 1.5 mg/dL (0.0-1.0); Blood Urea Nitrogen 21 mg/dL (9-16); Calcium 9.5 mg/dL (8.4-10.2); Carbon Dioxide 27 mmol/L (22-29); Chloride 108 mmol/L (96-108); Cholesterol 132 mg/dL (<200); Estimated Glomerular Filt Rate > 60; Glucose Fasting 111 mg/dL (60-99); HDL Cholesterol 47 mg/dL (>40); Iron 149 mcg/dL (45-160); LDL Cholesterol Calculated 75 mg/dL (<100); Percent Iron Saturation 55 % (15-50); Potassium 4.4 mmol/L (3.3-5.1); Sodium 140 mmol/L (135-145); Total Iron Binding Capacity 272 mcg/dL (228-428); Total Protein 7.6 g/dL (6.5-8.0); Triglycerides 50 mg/dL (<150); Unsaturated Iron Binding 123 ug/dL
[2024-12-10 08:20] LABS: Ferritin 14 ng/mL (20-250)
== END 2024-12-10 06:12 | disposition home or self-care (01) ==
LOC: HO.LAB 06:11
PROVIDERS: PCP Internal Medicine; Visit Provider Internal Medicine
DX: E83.119 Hemochromatosis, unspecified (principal); K21.9 Gastro-esophageal reflux disease without esophagitis; E78.5 Hyperlipidemia, unspecified; G47.33 Obstructive sleep apnea (adult) (pediatric); Z12.5 Encounter for screening for malignant neoplasm of prostate
CPT/HCPCS: 36415; 80053; 80061; 81003; 82728; 83540; 84153; 85025

== ENCOUNTER 2025-02-18 15:22 | Outpatient (REF) | payer OTHER, SELFPAY | END 2025-02-18 15:23 | disposition home or self-care (01) | LOC: HO.BBR 15:22 | PROVIDERS: PCP Internal Medicine; Visit Provider Internal Medicine | DX: Z13.89 Encounter for screening for other disorder (principal) ==

== ENCOUNTER 2025-04-15 15:48 | Outpatient (REF) | payer OTHER, SELFPAY ==
[2025-04-15 16:05] LABS: MANUAL DIFF FLAG NO
--- OUTSIDE RECORDS SUMMARY | 2025-04-15 16:39 | XMS_ITS ---
Author Organization [facility] Address [address] [place] [address] Care Team Providers Care Forming Machine Tender Name Role Phone Nate Loyola MD Primary Care Provider Jake Temple [phone] REASON FOR VISIT orders Encounters Encounter Location Date Provider Diagnosis [facility] [address] [place] [address] 02/05/2025 Jake Blue Plan Of Treatment Next Appt Details Provider Name:Jake Blue , 04/15/2026 04:00:00 PM, [address], [address], [place], [address], Progress Notes * ETTA MARIEDOB:[birth year] (54 yo M)Acc No.[id number]:02/05/2025 Patient:?ETTA MARIE :1970???Age:54 Y???Sex:Male Address:[address] [place] [address] * true * Date:? Generated for Printi ng/Fajbg/eTransmitting on:?04/15/2025 04:39 PM EDT
--- OUTSIDE RECORDS SUMMARY | 2025-04-15 16:39 | XMS_ITS ---
Author Organization [facility] Address [address] [place] [id number] Care Team Providers Care Perfume And Toilet Water Maker Name Role Phone Nate Loyola MD Primary Care Provider Helena BlueJake Unavailable [phone] Allergies No Known Allergies REASON FOR VISIT Patient presents today for GERD Medications Medication SIG (Take, Route, Fr equency, Duration) Notes Start Date End Date Status Omeprazole 20 MG TAKE 1 CAPSULE BY [facility] EVERY DAY Oral for 90 Active ibuprofen as needed Active Immunizations Vaccine Route Administration Date Status Comme nts Influenza Unknown 04/09/2025 Refused Vital Signs Temperature 98.0 degrees Fahrenheit 04/09/20 25 Blood pressure systolic 001 mm Hg 04/09/20 25 Blood pressure diastolic 01 mm Hg 025 Height 70.75 in 04/09/2025 Weight 184.4 lbs 04/09/2025 BMI 25.9 kg/m2 04/09/2025 Encounters Encounter Location Date Provider Diagnosis [facility] [address] [place] [id number] 04/09/2025 Jake Blue Hereditary hemochromatosis E83.110 ; Encounter for screening for malignant neoplasm of colon Z12.11 and History of adenomatous polyp of colon Z86.010 Assessments Encounter Date Diagnosis (ICD Code) Assessment Notes Treatment Notes Treatment Clinical Notes Section Notes 04/09/2025 Hereditary hemochromatosis (ICD-10 - E83.110) Continue the phlebotomy every 2 months Overall, Elías appears quite well. We did review the results of his GI procedures from last year and I advised him of the need for a follow-up colonoscopy for screening in 2028. Given the findings on the upper endoscopy I advised him that I do not think he would need any further upper endoscopies unless he was to begin having worsening symptoms of reflux such as increasing heartburn or dysphagia. In regard to the hemochromatosis he will continue his current phlebotomy schedule with a phlebotomy every 2 months given that his iron studies and hemoglobin are in a very good range earlier this year. Given the underlying hemochromatosis I shall schedule him for an abdominal ultrasound along with the below laboratories for further assessment of his liver. If things otherwise remain well I will plan to see Elías in 1 year for a follow-up visit. I did advise him to contact me prior to that if he has any problems or questions I can be of assistance with. Elías was comfortable with this plan. Thank you again for allowing me to participate in Elías's care. I shall continue to keep you advised of his progress. 04/09/2025 Encounter for screening for malignant neoplasm of colon (ICD-10 - Z12.11) Repeat colonoscopy in 2028 Overall, Elías appears quite well. We did review the results of his GI procedures from last year and I advised him of the need for a follow-up colonoscopy for screening in 2028. Given the findings on the upper endoscopy I advised him that I do not think he would need any further upper endoscopies unless he was to begin having worsening symptoms of reflux such as increasing heartburn or dysphagia. In regard to the hemochromatosis he will continue his current phlebotomy schedule with a phlebotomy every 2 months given that his iron studies and hemoglobin are in a very good range earlier this year. Given the underlying hemochromatosis I shall schedule him for an abdominal ultrasound along with the below laboratories for further assessment of his liver. If things otherwise remain well I will plan to see Elías in 1 year for a follow-up visit. I did advise him to contact me prior to that if he has any problems or questions I can be of assistance with. Elías was comfortable with this plan. Thank you again for allowing me to participate in Elías's care. I shall continue to keep you advised of his progress. 04/09/2025 History of adenomatous polyp of colon (ICD-10 - Z86.010) Overall, Elías appears quite well. We did review the results of his GI procedures from last year and I advised him of the need for a follow-up colonoscopy for screening in 2028. Given the findings on the upper endoscopy I advised him that I do not think he would need any further upper endoscopies unless he was to begin having worsening symptoms of reflux such as increasing heartburn or dysphagia. In regard to the hemochromatosis he will continue his current phlebotomy schedule with a phlebotomy every 2 months given that his iron studies and hemoglobin are in a very good range earlier this year. Given the underlying hemochromatosis I shall schedule him for an abdominal ultrasound along with the below laboratories for further assessment of his liver. If things otherwise remain well I will plan to see Elías in 1 year for a follow-up visit. I did advise him to contact me prior to that if he has any problems or questions I can be of assistance with. Elías was comfortable with this plan. Thank you again for allowing me to participate in Elías's care. I shall continue to keep you advised of his progress. Plan Of Treatment Treatment Notes Assessment Notes Hereditary hemochromatosis Continue the phlebotomy every 2 months Encounter for screening for malignant neoplasm of colon Repeat colonoscopy in 2028 Pending Test Test Name Order Date LIVER PROFILE 04/09/2025 CBC w DIFF 04/09/2025 ALPHA-FETOPROTEIN,TUMOR MARKER 5 Prothrombin Time INR 04/09/2025 Liver Fibrosis Pnl 04/09/2025 US abdomen comp w elastography 5 Next Appt Details Follow Up: 1 Year, Reason: Provider Name:Jake Blue , 04/15/2026 04:00:00 PM, [address] [place] [address], Suite [facility], [place], [address], Progress Notes * ELÍAS MARIEDOB:[birth year] (54 yo M)Acc No.[id number]:04/09/2025 Progress Notes Patient:?ELÍAS MARIE Provider:?Jake Blue MD :1970???Age:54 Y???Sex:Male Tr e:04/09/2025 Address: [place], [place] Pcp:Nate Loyola MD Subjective: * Chief Complaints: * ???1. Patient presents today for GERD. * HPI: ???incontinence:? I saw Elías in follow-up today in regard to his underlying history of hereditary hemochromatosis, personal history of colon polyps, and gastroesophageal reflux. Last saw Elías in May 2024, at which time he underwent a follow-up screening colonoscopy and upper endoscopy. The colonoscopy revealed small tubular numbers that were removed. The upper endoscopy revealed a small hiatal hernia and mild gastritis. Biopsies were negative for H. pylori. There is no esophagitis nor Lowe's esophagus. Since that time he has remained on his omeprazole daily with good relief of reflux symptoms. He denies any dysphagia, anorexia, early satiety, significant heartburn, nausea, nor vomiting. His bowel movements have remained regular and without any signs of bleeding. He denies any abdominal pain, signs of jaundice, nor weight loss. In regard to the hemochromatosis he continues with a phlebotomy every 2 months. His most recent labs in January revealed a hemoglobin of 15.7. Laboratories in November revealed an iron of 126, iron saturation of 50%, and a ferritin of 15. His last ultrasound of his liver was in February 2024. 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 His phlebotomy schedule was increased to every 2 months in 2018 due to an elevated iron level and iron saturation, although his ferritin was in the normal range, Denies TN,DM,CVA,Lung disease,renal disease, Screening colonoscopy in June of 2019 1cm tubulovillous adenoma removed from the transverse colon with areas of high-grade dysplasia, but without invasive cancer; he also had 2 small tubular adenomas removed from the ascending colon, Colonoscopy in October of 2020 with a small hyperplastic polyp removed, Colonoscopy in May 2024 revealed 3 small tubular adenomas that were removed, Upper endoscopy in May 2024 revealed a small hiatal hernia and mild gastritis, with biopsies negative for H. pylori. There was no esophagitis or Lowe's esophagus.. * Family History:?Father: dece ased.?Mother: .? He denies any family history of liver disease, GI malignancy or inflammatory bowel disease. * Social History:?Tobacco Use:?Tobacco Use/Smoking?Are you a: former smoker , How long has it been since you last smoked?: > 10 years.?Drugs/Alcohol:?Alcohol Screen?Points: 3, Interpretation: Negative.?Miscellaneous:?Marital status: Single. Occupation: Working at [employer] . ???Nonsmoker; no sig. alcohol. * Medications:?Taking Omeprazo le 20 MG Capsule Delayed Release TAKE 1 CAPSULE BY MOUTH EVERY DAY Oral , Taking ibuprofen as needed , Medication List reviewed and reconciled with the patient * Allergies:?N.K.D.A. Objective: * Vitals:?Wt:184.4lbs, Ht: 70. 75 in, BMI:25.9Index, BP:001/01mm Hg, Temp:98.0, Wt- k.64. Assessment: * Assessment: 1.?Hereditary hemochromatosi s - E83.110 (Primary)???2.?Encounter for screening for malignant neoplasm of colon - Z12.11???3.?History of adenomatous polyp of colon - Z86.010??? Overall, Eílas appears cheryl te well. We did review the results of his GI procedures from last year and I advised him of the need for a follow-up colonoscopy for screening in 2028. Given the findings on the upper endoscopy I advised him that I do not think he would need any further upper endoscopies unless he was to begin having worsening symptoms of reflux such as increasing heartburn or dysphagia. In regard to the hemochromatosis he will continue his current phlebotomy schedule with a phlebotomy every 2 months given that his iron studies and hemoglobin are in a very good range earlier this year. Given the underlying hemochromatosis I shall schedule him for an abdominal ultrasound along with the below laboratories for further assessment of his liver. If things otherwise remain well I will plan to see Elías in 1 year for a follow-up visit. I did advise him to contact me prior to that if he has any problems or questions I can be of assistance with. Elías was comfortable with this plan.?? Thank you again for allowing me to participate in Elías's care. I shall continue to keep you advised of his progress. Plan: * Treatment: * Notes: Continue the phlebotomy every 2 months??2.?Encounter for screening for malignant neoplasm of colon? Notes: Repeat colonoscopy in 2028?? * Immunizations:? Influenza (Not administered - Refused: Patient decision) * Preventive Medicine:? ??Counseling:?Care goal follow-up plan:?Above Normal BMI Follow-up?Dietary management education, guidance, and counseling,?BMI management provided?Yes.? * Follow Up:?1 Year * * The named appointment provid er may or may not be the originator of this progress note, and it is not deemed complete until electronically signed by the appointment provider. Sign off status: Pending * Provider:?Jake Blue MD Date:? 025 Generated for Amrik garcia/Georgina/eTransmitting on:?04/15/2025 04:39 PM EDT History and Physical Notes * HPI (History of Present Illness) Category Sub-Category Detail Notes Category Not es incontinence I saw Elías in follow-up today in regard to his underlying history of hereditary hemochromatosis, personal history of colon polyps, and gastroesophageal reflux. Last saw Elías in May 2024, at which time he underwent a follow-up screening colonoscopy and upper endoscopy. The colonoscopy revealed small tubular numbers that were removed. The upper endoscopy revealed a small hiatal hernia and mild gastritis. Biopsies were negative for H. pylori. There is no esophagitis nor Lowe's esophagus. Since that time he has remained on his omeprazole daily with good relief of reflux symptoms. He denies any dysphagia, anorexia, early satiety, significant heartburn, nausea, nor vomiting. His bowel movements have remained regular and without any signs of bleeding. He denies any abdominal pain, signs of jaundice, nor weight loss. In regard to the hemochromatosis he continues with a phlebotomy every 2 months. His most recent labs in January revealed a hemoglobin of 15.7. Laboratories in November revealed an iron of 126, iron saturation of 50%, and a ferritin of 15. His last ultrasound of his liver was in February 2024.
--- OUTSIDE RECORDS SUMMARY | 2025-04-15 16:39 | XMS_ITS ---
Author Organization [facility] Address [address] [place] [address] Care Team Providers Care Wirer Maintenance Name Role Phone Nate Loyola MD Primary Care Provider Jake Temple [phone] REASON FOR VISIT screening,gerd, hx polyps Problems Problem Type SNOMED Code ICD Code Onset Dates Problem Status W/U Status Risk Notes Problem Diverticular disease of colon (185235088) Diverticulosis of large intestine without perforation or abscess without bleeding (K57.30) Active confirmed Problem Gastroduodenitis (003502685) Gastritis without bleeding, unspecified chronicity, unspecified gastritis type (K29.70) Active confirmed Problem Gastro-esophageal reflux disease without esophagitis (529076202) Gastro-esophageal reflux disease without esophagitis (K21.9) Active confirmed Encounters Encounter Location Date Provider Diagnosis [facility] [place] Outpatient [address], [place] [id number] 06/03/2024 Jake Blue Colon cancer scree erasmo [...] Name:Jake Blue , 04/15/2026 04:00:00 PM, [address] [facility], [address], [place], [address], Progress Notes * ETTA MARIEDOB:[birth year] (54 yo M)Acc No.[id number]:06/03/2024 EGD and COL/MAC Patient:?ETTA MARIE Provider:?Jake Blue MD :1970???Age:53 Y???Sex:Male Tr e:06/03/2024 Address:[address] [place], [place] [address], [place] Pcp:Nate Loyola MD Subjective: * Chief Complaints: * ???1. Screening,gerd, hx emma yps. * Medical History:? Objective: * Vitals:? Assessment: * Assessment: 1.?Colon cancer screening - Z12.11 (Primary)???2.?Colon polyps - K63.5???3.?Diverticulosis of large intestine without perforation or abscess without bleeding - K57.30???4.?Other hemorrhoids - K64.8???5.?Hiatal hernia - K44.9???6.?Gastritis without bleeding, unspecified chronicity, unspecified gastritis type - K29.70???7.?Gastro-esophageal reflux disease without esophagitis - K21.9??? Plan: * Treatment: * Procedure Codes:?89577 LESIO N REMOVAL COLONOSCOPY, Modifiers: 33 , 78825 COLONOSCOPY AND BIOPSY, Modifiers: 59 , 33, 76978 UPPER GI ENDOSCOPY, BIOPSY * * The named appointment provid er may or may not be the originator of this progress note, and it is not deemed complete until electronically signed by the appointment provider. Sign off status: Pending * Provider:?Jake Blue MD Date:? 024 Generated for Amrik garcia/Georgina/Lance on:?04/15/2025 04:39 PM EDT
--- OUTSIDE RECORDS SUMMARY | 2025-04-15 16:40 | XMS_ITS | Patient Health Record ---
Author Organization [facility] Address [address] [place] [address] Care Team Providers Care Stone Fabricator Name Role Phone Nate Loyola MD Primary Care Provider Helena johnson Blue Jake Unavailable [phone] Allergies No Known Allergies Results Component Value Reference Range Notes IRON PROFILE Reviewed date:05/08/2024 05:41:52 PM Interpretation: Performing Lab:[facility], [address] [place] [phone] Notes/Report: Iron 156 45-160 mcg/dL Total Iron Binding Capacity 271 228-428 mcg/dL Percent Iron Saturation 58 15-50 % Unsaturated Iron Binding 115 Ferritin Reviewed date:06/02/2024 10:32:22 PM Interpretation: Performing Lab:[facility], [address] [place] [phone] Notes/Report: Ferritin 13 20-250 ng/mL Therapeutic Phlebotomy Reviewed date:05/09/2024 05:26:38 PM Interpretation: Performing Lab:[facility], [address] [place] [phone] Notes/Report: THER/HGB 12.5 14.0-18.0 g/dL THER/HCT TNP 42.0-52.0 % Therapeutic Phlebotomy Phlebotomy Performed 500 mls drawn on 05/08/24. Please note that a copy of this report has been sent to the Primary Care Physician, the ordering physician and any physician designated by patient request. Pathology Reviewed date:02/11/2025 11:08:03 PM Interpretation: Performing Lab:[facility], [address] [place] [phone] Notes/Report: Name: Elías Marie Age/Sex: 53/M : 1970 Unit#: [id number] Attend Dr: Jake Blue MD Re06/03/24 Status: [facility] Location: [facility] Disch: SPEC : [id number] RECD: 06/03/24-1202 STATUS: EDYRogers KD NUM: [id number] LOUISE: 06/03/24-[address] [facility] [address]: Jake Blue MD ENTERED: 06/03/24-1213 SP TYPE: Surgical OTHR DR: Nate Loyola MD ORDERED: HE Stain/9, Gross Micro L4/3, IHC, Special st. 2, H. pylori, AB/PAS Diagnosis A. Stomach, antrum, biopsy: Antral-type and oxyntic mucosa with moderate chronic inactive inflammation and regenerative changes; no Helicobacter organisms seen. B. Colon, ascending, polypectomies: Fragments of tubular adenomata; negative for high- grade dysplasia or carcinoma. C. Colon, 50 cm, polypectomy: Tubular adenoma; negative for high-grade dysplasia or carcinoma. Clinical History Pre-Op Dx: Reflux Post-Op Dx: GERD, hiatal hernia, colon polyps, diverticulosis, hemorrhoids Microscopic Description A-C. Microscopic sections examined. No metaplastic changes are seen, supported by AB/PAS stains (A); no Helicobacter organisms are seen, supported by H. pylori immunostain (A). Material Received A. Bx gastric antrum B. Ascending colon polyps C. Polyp at 50 cm Gross Description Received in 3 parts. A. Received in formalin labeled ?biopsy gastric antrum? are 3 fragments of ríos-white soft tissue measuring 0.3-0.4 cm in greatest dimension which are entirely submitted for microscopic examination, 3 pieces in cassette A. B. Received in formalin labeled ?ascending colon polyps? are several fragments of smooth, glistening pink-ríos soft tissue ranging from 0.2-0.4 cm in greatest dimension forming an aggregate measuring 0.6 x 0.5 x 0.3 cm which is entirely submitted for microscopic examination, multiple pieces in cassette A1. Received in the same container is a polypoid portion of pink-ríos soft tissue measuring 0.8 x 0.6 x 0.4 cm in greatest dimension. The outer surface is smooth and glistening. The base is inked blue. The specimen is bisected and entirely submitted for microscopic examination, 2 pieces in cassette B2. C received in formalin labeled ?polyp at 50 cm? is a rounded fragment of white soft tissue CONTINUED ON NEXT PAGE Name: FrankElías Ria Age/Sex: 53/M : 1970 Unit#: [id number] Attend Dr: Jake Blue MD Re06/03/24 Status: [facility] Location: [facility] Disch: SPEC : [id number] RECD: 06/03/24 STATUS: TORSTEN YI NUM: [id number] LOUISE: 06/03/24-[address] [facility] [address]: Jake Blue MD ENTERED: 06/03/24 SP TYPE: Surgical OTHR DR: Nate Loyola MD ORDERED: HE Stain/9, Gross Micro L4/3, IHC, Special st. 2, H. pylori, AB/PAS Gross Description (Continued) measuring 0.4 cm in greatest dimension which is entirely submitted for microscopic examination, 1 piece in cassette C. [facility] Special studies ordered and performed: Immunostain for H. pylori on A; AB/PAS stains on A Copies To: Nate Loyola MD [facility] [address] [place] [address] Jake Blue MD [facility] [address] [place], [place] [id number] Signed (signature on file) Renzo Hernandez MD 06/04/24 1149 END OF REPORT Complete Blood Count Auto Di ff Reviewed date:06/13/2024 08:58:13 AM Interpretation: Performing Lab:[facility], [address] [place] [phone] Notes/Report: White Blood Count 4.8 4.8-10.8 X10*3/uL [...] INR Reviewed date:06/13/2024 08:58:21 AM Interpretation: Performing Lab:[facility], [address] [place] [phone] Notes/Report: Prothrombin Time 10.8 11.1-13.3 [employer] [...] Panel Reviewed date:06/13/2024 08:58:31 AM Interpretation: Performing Lab:[facility], [address] [place] [phone] Notes/Report: Bilirubin Total 0.9 0.0-1.0 mg/dL Bilirubin Direct 0.3 0.0-0.5 mg/dL Aspartate Amino Transferase 22 5-37 U/L Alanine Aminotransferase 24 0-40 U/L Total Protein 7.9 6.5-8.0 g/dL Albumin Level 4.9 3.5-5.0 g/dL Alkaline Phosphatase 52 39-117 U/L Alpha Fetoprotein Reviewed date:06/21/2024 06:59:03 PM Interpretation: Performing Lab:[facility], [address] [place] [phone] Notes/Report: Alpha Fetoprotein 1.8 <6.1 ng/mL This test was performed using the Amberly Giuseppe chemiluminescent method. Values obtained from different assay methods cannot be used interchangeably. AFP levels, regardless of value, should not be interpreted as absolute evidence of the presence or absence of disease. THIS TEST WAS PERFORMED AT: [facility] [address] [place] [phone] LEDA HANNAH MD Liver Fibrosis Pnl Reviewed date:06/21/2024 06:59:11 PM Interpretation: Performing Lab:[address] [phone] Notes/Report: Liver Fibrosis Score 0.26 Liver Fibrosis [...] a>0.62 and a<=1.00 : A3 (severe activity) JHG-Qread-3-Macroglobulin 178 106-279 mg/dL FIB-Haptoglobin 71 43-212 mg/dL FIB-Apolipoprotein A1 161 94-176 mg/dL FIB-Total Bilirubin 0.8 0.2-1.2 mg/dL FIB-GGT 17 3-85 U/L FIB-ALT 22 9-46 U/L Reference ID [id number] Footnote SEE NOTE The reliability of results is dependent on compliance with the preanalytical and analytical conditions recommended by [employer]. The tests have to be deferred for: [...] The performance characteristics have been determined by [facility]. It has not been cleared or approved by the U.S. Food and Drug Administration. Performance characteristics refer to the analytical performance of the test. [employer], [employer], the associated logo, [facility] and all associated [employer] king are the registered trademarks of [employer]. All third democrat king - (R) and (TM) - are the property of their respective owners. (C) 2694-2872 [employer]. All rights reserved. THIS TEST WAS PERFORMED AT: [facility] [facility] [address] [place] [address] TRACY STANTON MD,PHD,MYNOR Therapeutic Phlebotomy Reviewed date:07/11/2024 09:12:07 AM Interpretation: Performing Lab:[facility], [address] [place] [phone] Notes/Report: THER/HGB 14.9 14.0-18.0 g/dL THER/HCT TNP 42.0-52.0 % Therapeutic Phlebotomy Phlebotomy Performed 500 mls drawn on 07/10/24. Please note that a copy of this report has been sent to the Primary Care Physician, the ordering physician and any physician designated by patient request. Therapeutic Phlebotomy Reviewed date:09/20/2024 05:15:19 PM Interpretation: Performing Lab:[facility], [address] [place] [phone] Notes/Report: THER/HGB 14.6 14.0-18.0 g/dL THER/HCT TNP 42.0-52.0 % Therapeutic Phlebotomy Phlebotomy Performed 500 mls drawn on 09/19/24. Please note that a copy of this report has been sent to the Primary Care Physician, the ordering physician and any physician designated by patient request. IRON PROFILE Reviewed date:12/01/2024 12:09:19 PM Interpretation: Performing Lab:[address] [phone] Notes/Report: Iron 126 45-160 mcg/dL Total Iron Binding Capacity 251 228-428 mcg/dL Percent Iron Saturation 50 15-50 % Unsaturated Iron Binding 125 Ferritin Reviewed date:12/01/2024 12:09:29 PM Interpretation: Performing Lab:[facility], [address] [place] [phone] Notes/Report: Ferritin 15 20-250 ng/mL Therapeutic Phlebotomy Reviewed date:12/01/2024 12:10:04 PM Interpretation: Performing Lab:[facility], [address] [place] [phone] Notes/Report: THER/HGB 14.5 14.0-18.0 g/dL THER/HCT TNP 42.0-52.0 % Therapeutic Phlebotomy Phlebotomy Performed 500 mls drawn on 11/28/24. Please note that a copy of this report has been sent to the Primary Care Physician, the ordering physician and any physician designated by patient request. Therapeutic Phlebotomy Reviewed date:02/19/2025 11:32:01 PM Interpretation: Performing Lab:[facility], [address] [place] [phone] Notes/Report: THER/HGB 15.7 14.0-18.0 g/dL THER/HCT TNP 42.0-52.0 % Therapeutic Phlebotomy Phlebotomy Performed 500 mls drawn on 02/18/25. Please note that a copy of this report has been sent to the Primary Care Physician, the ordering physician and any physician designated by patient request. Reason For Referral No Information Medications Medication SIG (Take, Route, Fr equency, Duration) Notes Start Date End Date Status Omeprazole 20 MG TAKE 1 CAPSULE BY [facility] EVERY DAY Oral for 90 Active ibuprofen as needed Active Immunizations Vaccine Route Administration Date Status Comme nts Influenza Unknown 08/27/2020 Administered Influenza Unknown 04/24/2019 Refused Influenza Unknown 04/09/2025 Refused Problems Problem Type SNOMED Code ICD Code Onset Dates Problem Status W/U Status Risk Notes Problem Gastro-esophageal reflux disease without esophagitis (451329717) Gastro-esophageal reflux disease without esophagitis (K21.9) Active confirmed Problem 346263680 Encounter for screening for malignant neoplasm of colon (Z12.11) Active confirmed Problem History of adenomatous polyp of colon (747487525) History of adenomatous polyp of colon (Z86.010) Active confirmed Problem 81813092 Hereditary hemochromatosis (E83.110) Active confirmed Problem Diverticular disease of colon (745400359) Diverticulosis of large intestine without perforation or abscess without bleeding (K57.30) Active confirmed Problem Gastroduodenitis (698306446) Gastritis without bleeding, unspecified chronicity, unspecified gastritis type (K29.70) Active confirmed Problem Gastroesophageal reflux disease (disorder) (388003499) Chronic GERD (K21.9) Active confirmed Vital Signs Temperature 98.0 degrees Fahrenheit 04/09/2025 Blood pressure diastolic 01 mm Hg 04/09/2025 Height 70.75 in 04/09/2025 Blood pressure systolic 001 mm Hg 04/09/2025 Weight 184.4 lbs 04/09/2025 BMI 25.9 kg/m2 04/09/2025 Encounters Encounter Location Date Provider Diagnosis [facility] Out[facility] [address] [place] [id number] 06/03/2024 Jake Blue Colon cancer screeni ng Z12.11 ; Colon polyps K63.5 ; Diverticulosis of large intestine without perforation or abscess without bleeding K57.30 ; Other hemorrhoids K64.8 ; Hiatal hernia K44.9 ; Gastritis without bleeding, unspecified chronicity, unspecified gastritis type K29.70 and Gastro-esophageal reflux disease without esophagitis K21.9 [facility] [address] [facility] [address] [facility] [address] [place] [phone] 04/09/2025 Jake Blue Hereditary hemochromatosis E83.110 ; Encounter for screening for malignant neoplasm of colon Z12.11 and History of adenomatous polyp of colon Z86.010 [facility] [address] [place] [phone] 02/05/2025 Jake Blue Assessments Encounter Date Diagnosis (ICD Code) Assessment Notes Treatment Notes Treatment Clinical Notes Section Notes 06/03/2024 Colon cancer screening (ICD-10 - Z12.11) 06/03/2024 Colon polyps (ICD-10 - K63.5) 04/09/2025 Hereditary hemochromatosis (ICD-10 - E83.110) Continue [...] to keep you advised of his progress. 06/03/2024 Diverticulosis of large intestine without perforation or abscess without bleeding (ICD-10 - K57.30) 04/09/2025 Encounter for screening for malignant neoplasm [...] to keep you advised of his progress. 06/03/2024 Other hemorrhoids (ICD-10 - K64.8) 04/09/2025 History of adenomatous polyp of colon [...] to keep you advised of his progress. 06/03/2024 Hiatal hernia (ICD-10 - K44.9) 06/03/2024 Gastritis without bleeding, unspecified chronicity, unspecified gastritis type (ICD-10 - K29.70) 06/03/2024 Gastro-esophageal reflux disease without esophagitis (ICD-10 - K21.9) Plan Of Treatment Pending Test Test Name Order Date LIVER PROFILE 02/27/2024 LIVER PROFILE 04/09/2025 LIVER PROFILE 12/02/2022 CBC w DIFF 02/27/2024 CBC w DIFF 04/09/2025 CBC w DIFF 12/02/2022 PROTHROMBIN TIME (PT, INR) 09/25/2020 ALPHA-FETOPROTEIN,TUMOR MARKER 4 ALPHA-FETOPROTEIN,TUMOR MARKER 5 ALPHA-FETOPROTEIN,TUMOR MARKER 0 ALPHA-FETOPROTEIN,TUMOR MARKER 3 US ABD 12/02/2022 US ABD 09/25/2020 Prothrombin Time INR 12/02/2022 Prothrombin Time INR 02/27/2024 Prothrombin Time INR 04/09/2025 Liver Fibrosis Pnl 02/27/2024 Liver Fibrosis Pnl 04/09/2025 Liver Fibrosis Pnl 12/02/2022 US abdomen comp w elastography 4 US abdomen comp w elastography 5 Future Test Test Name Order Date COLONOSCOPY 04/24/2019 COLONOSCOPY 09/25/2020 UPPER GI ENDOSCOPY 02/27/2024 COLONOSCOPY 02/27/2024 Next Appt Details Provider Name:Jake Blue , 04/15/2026 04:00:00 PM, [address], [address], [place], [address], Insurance Providers Payer Name Payer Address Payer Phone Subscriber Number Group Number Insured Name Patient Relationship to Insured Coverage Start Date Coverage End Date 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 His phlebotomy schedule was increased to every 2 months in 2018 due to an elevated iron level and iron saturation, although his ferritin was in the normal range Denies ME,DM,CVA,Lung disease,renal dise ase Screening colonoscopy in Jun--> 1cm tubulovillous adenoma removed from the transverse colon with areas of high-grade dysplasia, but without invasive cancer; he also had 2 small tubular adenomas removed from the ascending colon Colonoscopy in October of 2020 with a s mall hyperplastic polyp removed Colonoscopy in May 2024 revealed 3 smal l tubular adenomas that were removed Upper endoscopy in May 2024 revealed a small hiatal hernia and mild gastritis, with biopsies negative for H. pylori. There was no esophagitis or Lowe[employer] esophagus. Surgical History Surgery Date(Month/Year)
[2025-04-15 17:13] LABS: Basophils Absolute Auto 0.1 X10*3/uL (0.0-0.2); Basophils Percent Auto 0.9 % (0-2); Eosinophils Absolute Auto 0.2 X10*3/uL (0.0-0.4); Eosinophils Percent Auto 3.9 % (0-4); Hematocrit 40.1 % (42.0-52.0); Imm Gran Abs Auto 0.01 X10*3/uL (0.00-0.03); Imm Gran Pct Auto 0.2 % (0.0-0.4); Lymphocytes Absolute Auto 1.5 X10*3/uL (1.2-4.9); Lymphocytes Percent Auto 28.4 % (20-40); Mean Corpuscular HGB Conc 34.9 g/dl (31.0-36.0); Mean Corpuscular Hemoglobin 32.6 pg (27.0-33.0); Mean Corpuscular Volume 93.5 fL (80.0-98.0); Mean Platelet Volume 12.4 fL (9.4-12.4); Monocytes Absolute Auto 0.5 X10*3/uL (0.1-1.2); Monocytes Percent Auto 9.3 % (2-11); Neutrophils Absolute Auto 3.1 x10*3/uL (2.0-8.3); Neutrophils Percent Auto 57.3 % (45-73); Platelet Count 172 X10*3/uL (160-400); Red Blood Count 4.29 X10*6/uL (4.60-5.80); Red Cell Distribution Width 13.8 % (11.0-16.0); White Blood Count 5.4 X10*3/uL (4.8-10.8)
[2025-04-15 17:21] LABS: Prothrombin Time 11.5 SEC (10.9-12.4)
[2025-04-15 17:39] LABS: Albumin Level 4.7 g/dL (3.5-5.0); Alkaline Phosphatase 48 U/L (39-117); Bilirubin Total 1.2 mg/dL (0.0-1.0); Total Protein 7.5 g/dL (6.5-8.0)
[2025-04-15 17:55] LABS: Alanine Aminotransferase 30 U/L (0-40); Aspartate Amino Transferase 29 U/L (5-37); Bilirubin Direct 0.3 mg/dL (0.0-0.5)
[2025-04-16 12:54] LABS: Alpha Fetoprotein 1.8 ng/mL (<6.1)
[2025-04-22 01:48] LABS: FIB-ALT 20 U/L (9-46); FIB-Alpha-2-Macroglobulin 158 mg/dL (106-279); FIB-Apolipoprotein A1 132 mg/dL (94-176); FIB-GGT 15 U/L (3-85); FIB-Haptoglobin 48 mg/dL (43-212); Liver Fibrosis Score 0.36; Liver Fibrosis Stage F1-F2; Nec Inflam Act Grade A0; Nec Inflam Act Score 0.09; Reference ID 5503849
== END 2025-04-15 15:49 | disposition home or self-care (01) ==
LOC: HO.LAB 15:48
PROVIDERS: Visit Provider Internal Medicine
DX: E83.110 Hereditary hemochromatosis (principal)
CPT/HCPCS: 36415; 80076; 81596; 82105; 85025; 85610

== ENCOUNTER 2025-04-23 15:25 | Outpatient (REF) | payer OTHER, SELFPAY ==
--- OUTSIDE RECORDS SUMMARY | 2025-04-23 16:00 | XMS_ITS ---
Author Organization [facility] Address [address] [place] [address] Care Team Providers Care Quality Audit Representative Name Role Phone Nate Loyola MD Primary Care Provider Jake [place] [phone] REASON FOR VISIT orders Encounters Encounter Location Date Provider Diagnosis [facility] [address] [place] [address] 02/05/2025 Jake Blue Plan Of Treatment Next Appt Details Provider Name:Jake Blue , 04/15/2026 04:00:00 PM, [address], [address], [place], [address], Progress Notes * ETTA MARIEDOB:[birth year] (54 yo M)Acc No.[id number]:02/05/2025 Patient:?ETTA MARIE :1970???Age:54 Y???Sex:Male Address:[address] [address] * true * Date:? Generated for Printi ng/Fadeja/eTransmitting on:?04/23/2025 04:00 PM EDT
== END 2025-04-23 15:26 | disposition home or self-care (01) ==
LOC: HO.BBR 15:25
PROVIDERS: Visit Provider Internal Medicine
DX: Z13.89 Encounter for screening for other disorder (principal)

== ENCOUNTER 2025-06-09 09:16 | Outpatient (REF) | payer OTHER, SELFPAY ==
--- OUTSIDE RECORDS SUMMARY | 2024-06-03 05:40 | XMS_ITS ---
Author Organization [facility] Address [address] [place] [address] Care Team Providers Care Boiler Fireman Name Role Phone Nate Loyola MD Primary Care Provider Jake Temple [phone] REASON FOR VISIT screening,gerd, hx polyps Problems Problem Type SNOMED Code ICD Code Onset Dates Problem Status W/U Status Risk Notes Problem Diverticular disease of colon (351367360) Diverticulosis of large intestine without perforation or abscess without bleeding (K57.30) Active confirmed Problem Gastritis withou t bleeding, unspecified chronicity, unspecified gastritis type (K29.70) Active confirmed Problem Gastro-esophagea l reflux disease without esophagitis (291899837) Gastro-esophageal reflux disease without esophagitis (K21.9) Active confirmed Encounters Encounter Location Date Provider Diagnosis [facility] [place] Outpatient [address] [place], [place] [id number] 06/03/2024 Jake Blue Colon cancer scree erasmo [...] Of Treatment Next Appt Details Provider Name:Jake Escobar Mirza , 04/15/2026 04:00:00 PM, [address] [place] [address], [address], [place], [address], Progress Notes * ETTA MARIEDOB:[birth year] (54 yo M)Acc No.[id number]:06/03/2024 EGD and COL/MAC Patient: ETTA BOLTON Provider: Sneha Blue MD :1970 A ge:53 Y S ex:Male Date:06/03/2024 Address: [facility] Pcp:Nate Loyola MD Subjective: * Chief Complaints: * 1 . [...] 5385 LESION REMOVAL COLONOSCOPY, Modifiers: 33 , 68059 COLONOSCOPY AND BIOPSY, Modifiers: 59 , 33, 57573 UPPER GI ENDOSCOPY, BIOPSY * * The named appointment provid er may or may not be the originator of this progress note, and it is not deemed complete until electronically signed by the appointment provider. Sign off status: Pending * Provider: Sneha Blue MD Date: 0 06/03/2024 Generated for Amrik garcia/Georgina/Lance on: 0 06/09/2025 09:38 AM EDT
--- NOTE | ~2025-06-09 | US_ITS ---
EXAMINATION: US ABDOMEN COMPLETE WITH LIVER ELASTOGRAPHY HISTORY: HEREDITARY HEMOCHROMATOSIS TECHNIQUE: Real-time grayscale ultrasound imaging of the abdomen was performed and images were reviewed. COMPARISON: Comparison is made with the prior examination dated 03/08/2024. FINDINGS: Liver: The right lobe of the liver measures 14.5 cm in size. The left lobe of the liver measures 10.1 cm in size. The liver demonstrates increased echotexture, consistent with steatosis. There is focal fatty sparing adjacent to the gallbladder. There is a 7 mm cyst in the left lobe. No intrahepatic biliary ductal dilatation is identified. There is normal hepatopedal flow in the portal vein. Ultrasound elastography of the liver was performed with 10 separate measurements of the liver parenchyma with the patient in the supine position. Measurements were obtained approximately 2 cm below Danish's capsule and perpendicular to the capsule. The median shear wave velocity is 1.58 m/s (previously 1.36 m/s). The interquartile range/median (IQR/median) is 0.15. Gallbladder and biliary tree: The gallbladder is unremarkable, without evidence of calculi, wall thickening, or pericholecystic fluid. There is no sonographic Lock sign. The common bile duct is normal in caliber measuring 3 mm. Kidneys: The right kidney measures 10.8 cm in length. The left kidney measures 11.6 cm in length and demonstrates a 1.1 cm cyst in the interpolar region. The kidneys are otherwise unremarkable, without evidence of solid masses, hydronephrosis, or calculi. Pancreas: The pancreatic head, neck, and body are unremarkable. The pancreatic tail is obscured by bowel gas. Spleen: The spleen is normal in size and contour, measuring 11.0 cm in length. Abdominal aorta and inferior vena cava: The visualized portions of the abdominal aorta and inferior vena cava are normal in caliber. There is no free fluid in the abdomen. US/US abdomen comp w elastography IMPRESSION: Hepatic steatosis. Hepatic and left renal cysts as described. The median shear wave velocity in the liver is 1.58 m/s, corresponding to a median liver stiffness of 7.86 kPa. The IQR/median value is 0.15. This is indicative of a poor quality data set, and the estimated liver stiffness may be unreliable. Findings are indicative of a low elastography value which rules out advanced chronic liver disease in asymptomatic patients. REFERENCE: Society of Radiologists in Ultrasound Liver Stiffness Thresholds (2020): LIVER STIFFNESS THRESHOLDS: *Shear wave velocity less than 1.3 m/s (Liver Stiffness equal or less than 5 kPa): High probability of being normal. *Shear wave velocity less than 1.7 m/s (Liver Stiffness less than 9 kPa): In the absence of other known clinical signs, rules out compensated advanced chronic liver disease. *Shear wave velocity between 1.7-2.1 m/s (Liver Stiffness 9-13 kPa): Suggestive of compensated advanced chronic liver disease but need further test for confirmation. *Shear wave velocity between 2.1-2.4 m/s (Liver Stiffness 13-17 kPa): Rules in compensated advanced chronic liver disease. *Shear wave velocity greater than 2.4 m/s (Liver Stiffness over 17 kPa): Suggestive of clinically significant portal hypertension. QUALITY OF DATA SET: *IQR/Median value equal or less than 0.15 implies a quality data set. *IQR/Median value over 0.15 implies a poor quality data set. SIGNIFICANT CHANGE FROM PRIOR EXAM: Significant change if liver stiffness measurement is 10% or greater from prior exam. OTHER CONSIDERATIONS: The stage of liver fibrosis may be overestimated in the setting of acute hepatitis, liver inflammation, elevated liver function tests, hepatic vascular congestion, obstructive cholestasis, non-fasting state, and infiltrative diseases such as amyloidosis and lymphoma. In some patients with NAFLD, the liver stiffness thresholds for compensated advanced chronic liver disease may be lower. In causes other than viral hepatitis and NAFLD, liver stiffness thresholds are not well established. Electronically signed by: Jake De La Paz MD 06/09/2025 10:54 AM EDT
== END 2025-06-09 09:17 | disposition home or self-care (01) ==
LOC: HO.US 09:16
PROVIDERS: Visit Provider Internal Medicine
DX: E83.110 Hereditary hemochromatosis (principal)
CPT/HCPCS: 76700; 76981

== ENCOUNTER → 2025-06-09 09:35 | Outpatient (BNV) | payer OTHER, SELFPAY | PROVIDERS: Visit Provider Radiology Diagnostic Radiology | DX: K76.0 Fatty (change of) liver, not elsewhere classified (principal); N28.1 Cyst of kidney, acquired | CPT/HCPCS: 76700 ==

== ENCOUNTER 2025-06-24 15:24 | Outpatient (REF) | payer OTHER, SELFPAY ==
[2025-06-24 17:00] LABS: Iron 234 mcg/dL (45-160); Percent Iron Saturation 90 % (15-50); Total Iron Binding Capacity 259 mcg/dL (228-428); Unsaturated Iron Binding < 25 ug/dL
[2025-06-24 17:14] LABS: Ferritin 14 ng/mL (20-250)
== END 2025-06-24 15:25 | disposition home or self-care (01) ==
LOC: HO.BBR 15:24
PROVIDERS: Visit Provider Internal Medicine
DX: E83.110 Hereditary hemochromatosis (principal)
CPT/HCPCS: 36415; 82728; 83540

== ENCOUNTER 2025-08-26 15:27 | Outpatient (REF) | payer OTHER, SELFPAY ==
--- OUTSIDE RECORDS SUMMARY | 2024-06-03 05:40 | XMS_ITS ---
Author Organization [facility] Address [address] [place] [address] Care Team Providers Care Hand Reamer Name Role Phone Milla (RETIRED) Nate MESSINA Primary Care Provide r Unavailable Jake Blue Unavailable [phone] REASON FOR VISIT screening,gerd, hx polyps Problems Problem Type SNOMED Code ICD Code Onset Dates Problem Status W/U Status Risk Notes Problem Diverticular disease of colon (949268194) Diverticulosis of large intestine without perforation or abscess without bleeding (K57.30) Active confirmed Problem Gastroduodenitis (599276205) Gastritis without bleeding, unspecified chronicity, unspecified gastritis type (K29.70) Active confirmed Problem Gastro-esophageal reflux disease without esophagitis (154997300) Gastro-esophageal reflux disease without esophagitis (K21.9) Active confirmed Encounters Encounter Location Date Provider Diagnosis [facility] Outpatient [address] [place], [place] [id number] 06/03/2024 Jake Blue Colon cancer scree erasmo Z12.11 ; Colon polyps K63.5 ; Diverticulosis of large intestine without perforation or abscess without bleeding K57.30 ; Other hemorrhoids K64.8 ; Hiatal hernia K44.9 ; Gastritis without bleeding, unspecified chronicity, unspecified gastritis type K29.70 and Gastro-esophageal reflux disease without esophagitis K21.9 Assessments Encounter Date Diagnosis (ICD Code) Assessment Notes Treatment Notes Treatment Clinical Notes Section Notes 06/03/2024 Colon cancer screening (ICD-10 - Z12.11) 06/03/2024 Colon polyps (ICD-10 - K63.5) 06/03/2024 Diverticulosis of large intestine without perforation or abscess without bleeding (ICD-10 - K57.30) 06/03/2024 Other hemorrhoids (ICD-10 - K64.8) 06/03/2024 Hiatal hernia (ICD-10 - K44.9) 06/03/2024 Gastritis without bleeding, unspecified chronicity, unspecified gastritis type (ICD-10 - K29.70) 06/03/2024 Gastro-esophageal reflux disease without esophagitis (ICD-10 - K21.9) Plan Of Treatment Next Appt Details Provider Name:Jake Blue , 04/15/2026 04:00:00 PM, [address] [facility], [address], [place], [address], Progress Notes * ETTA MARIEDOB:[birth year] (54 yo M)Acc No.[id number]:06/03/2024 EGD and COL/MAC Patient: ETTA BOLTON Provider: Sneha Blue MD :1970 A ge:53 Y S ex:Male Date:06/03/2024 Address:[address] [place] [address] Pcp:Nate Loyola (RETIRED )MD Subjective: * Chief Complaints: * 1 . Screening,gerd, hx polyps. * Medical History: Objective: * Vitals: Assessment: * Assessment: 1. C olon cancer screening - Z12.11 (Primary) 2 . C olon polyps - K63.5? 3. D iverticulosis of large intestine without perforation or abscess without bleeding - K57.30 4 . O ther hemorrhoids - K64.8 5 . H iatal hernia - K44.9 6 . G astritis without bleeding, unspecified chronicity, unspecified gastritis type - K29.70 7 . G leeanne-esophageal reflux disease without esophagitis - K21.9 Plan: * Treatment: * Procedure Codes: 4 5385 LESION REMOVAL COLONOSCOPY, Modifiers: 33 , 29038 COLONOSCOPY AND BIOPSY, Modifiers: 59 , 33, 70937 UPPER GI ENDOSCOPY, BIOPSY * * The named appointment provid er may or may not be the originator of this progress note, and it is not deemed complete until electronically signed by the appointment provider. Sign off status: Pending * Provider: Sneha Blue MD Date: 0 06/03/2024 Generated for Amrik garcia/Georgina/Lance on: 0 08/26/2025 04:41 PM EDT
--- OUTSIDE RECORDS SUMMARY | 2025-08-26 16:42 | XMS_ITS | Patient Health Record ---
Author Organization [facility] Address [address] [place] [address] Care Team Providers Care Irrigation Equipment Remover Name Role Phone Milla (RETIRED) Nate MESSINA Primary Care Provide r Unavailable Jake Blue Unavailable [phone] Allergies No Known Allergies Results Component Value Reference Range Notes Prothrombin Time INR Reviewed date:04/15/2025 05:31:28 PM Interpretation: Performing Lab:[facility], [address] [place] [phone] Notes/Report: Prothrombin Time 11.5 10.9-12.4 SEC INTERNATIONAL NORM RATIO 1.0 0.9-1.1 INTERNATIONAL NORMALIZED RATIO (INR) REFERENCE RANGES [...] prosthetic heart valves: 2.5 - 3.5 Liver Fibrosis Pnl Reviewed date:04/25/2025 05:12:02 PM Interpretation: Performing Lab:[facility], [address] [place] [phone] Notes/Report: Liver Fibrosis Score 0.36 Liver Fibrosis Stage F1-F2 Liver Fibrosis Interpretation SEE NOTE minimal fibrosis Fibro Test Score (f) Metavir Score [...] a>0.62 and a<=1.00 : A3 (severe activity) URN-Fcbkp-2-Macroglobulin 158 106-279 mg/dL FIB-Haptoglobin 48 43-212 mg/dL FIB-Apolipoprotein A1 132 94-176 mg/dL FIB-Total Bilirubin 1.0 0.2-1.2 mg/dL FIB-GGT 15 3-85 U/L FIB-ALT 20 9-46 U/L Reference ID [id number] Footnote SEE NOTE The reliability of results is dependent on compliance with the preanalytical and analytical conditions recommended by [employer]. The tests have to be deferred for: [...] The performance characteristics have been determined by [employer] [facility]. It has not been cleared or approved by the U.S. Food and Drug Administration. Performance characteristics refer to the analytical performance of the test. [employer], the associated logo, [employer] and all associated [employer] king are the registered trademarks of [employer]. All third republican king - (R) and (TM) - are the property of their respective owners. (C) 5026-9765 [employer]. All rights reserved. THIS TEST WAS PERFORMED AT: [employer] [address] [place] [address] TRACY STANTON MD,PHD,MYNOR Therapeutic Phlebotomy Reviewed date:09/20/2024 05:15:19 PM Interpretation: Performing Lab:[address] [phone] Notes/Report: THER/HGB 14.6 14.0-18.0 g/dL THER/HCT TNP 42.0-52.0 % Therapeutic Phlebotomy Phlebotomy Performed 500 mls drawn on 09/19/24. Please note that a copy of this report has been sent to the Primary Care Physician, the ordering physician and any physician designated by patient request. IRON PROFILE Reviewed date:12/01/2024 12:09:19 PM Interpretation: Performing Lab:[address] [address] Notes/Report: Iron 126 45-160 mcg/dL Total Iron Binding Capacity 251 228-428 mcg/dL Percent Iron Saturation 50 15-50 % Unsaturated Iron Binding 125 Ferritin Reviewed date:12/01/2024 12:09:29 PM Interpretation: Performing Lab:[address] [address] Notes/Report: Ferritin 15 20-250 ng/mL Therapeutic Phlebotomy Reviewed date:12/01/2024 12:10:04 PM Interpretation: Performing Lab:[address] [address] Notes/Report: THER/HGB 14.5 14.0-18.0 g/dL THER/HCT TNP 42.0-52.0 % Therapeutic Phlebotomy Phlebotomy Performed 500 mls drawn on 11/28/24. Please note that a copy of this report has been sent to the Primary Care Physician, the ordering physician and any physician designated by patient request. Therapeutic Phlebotomy Reviewed date:02/19/2025 11:32:01 PM Interpretation: Performing Lab:[address] [address] Notes/Report: THER/HGB 15.7 14.0-18.0 g/dL THER/HCT TNP 42.0-52.0 % Therapeutic Phlebotomy Phlebotomy Performed 500 mls drawn on 02/18/25. Please note that a copy of this report has been sent to the Primary Care Physician, the ordering physician and any physician designated by patient request. Complete Blood Count Auto Di ff Reviewed date:04/18/2025 06:50:18 PM Interpretation: Performing Lab:[facility], [address] [place] [phone] Notes/Report: White Blood Count 5.4 4.8-10.8 X10*3/uL Red Blood Count 4.29 4.60-5.80 X10*6/uL Hemoglobin 14.0 14.0-18.0 g/dl Hematocrit 40.1 42.0-52.0 % Mean Corpuscular Volume 93.5 80.0-98.0 fL Mean Corpuscular Hemoglobin 32.6 27.0-33.0 pg Mean Corpuscular HGB Conc 34.9 31.0-36.0 g/dl Red Cell Distribution Width 13.8 11.0-16.0 % Platelet Count 172 160-400 X10*3/uL Mean Platelet Volume 12.4 9.4-12.4 fL Neutrophils Percent Auto 57.3 45-73 % Imm Gran Pct Auto 0.2 0.0-0.4 % Lymphocytes Percent Auto 28.4 20-40 % Monocytes Percent Auto 9.3 2-11 % Eosinophils Percent Auto 3.9 0-4 % Basophils Percent Auto 0.9 0-2 % NRBC Pct Auto 0.0 0.0-0.2 /100WBC Neutrophils Absolute Auto 3.1 2.0-8.3 x10*3/u L Imm Gran Abs Auto 0.01 0.00-0.03 X10*3/uL Lymphocytes Absolute Auto 1.5 1.2-4.9 X10*3/u L Monocytes Absolute Auto 0.5 0.1-1.2 X10*3/uL Eosinophils Absolute Auto 0.2 0.0-0.4 X10*3/u L Basophils Absolute Auto 0.1 0.0-0.2 X10*3/uL NRBC Abs Auto 0.000 0.0-0.012 X10*3/uL Liver Panel Reviewed date:04/15/2025 07:06:39 PM Interpretation: Performing Lab:[address] [address] Notes/Report: Bilirubin Total 1.2 0.0-1.0 mg/dL Bilirubin Direct 0.3 0.0-0.5 mg/dL Aspartate Amino Transferase 29 5-37 U/L Alanine Aminotransferase 30 0-40 U/L Total Protein 7.5 6.5-8.0 g/dL Albumin Level 4.7 3.5-5.0 g/dL Alkaline Phosphatase 48 39-117 U/L Alpha Fetoprotein Reviewed date:04/22/2025 11:28:26 AM Interpretation: Performing Lab:[address] [address] Notes/Report: Alpha Fetoprotein 1.8 <6.1 ng/mL This test was performed using the Amberly Giuseppe chemiluminescent method. Values obtained from different assay methods cannot be used interchangeably. AFP levels, regardless of value, should not be interpreted as absolute evidence of the presence or absence of disease. THIS TEST WAS PERFORMED AT: [facility] [address] [place] [phone] LEDA HANNAH MD Therapeutic Phlebotomy Reviewed date:04/24/2025 11:56:14 AM Interpretation: Performing Lab:[address] [address] Notes/Report: THER/HGB 14.3 14.0-18.0 g/dL THER/HCT TNP 42.0-52.0 % Therapeutic Phlebotomy Phlebotomy Performed 500 mls drawn on 04/23/25. Please note that a copy of this report has been sent to the Primary Care Physician, the ordering physician and any physician designated by patient request. US abdomen comp w elastograp hy Reviewed date:06/25/2025 06:01:35 PM Interpretation: Performing Lab: Notes/Report: [address] [address] Ultrasound Report Signed Patient: Elías Marie MR#: [id number] : 1970 Acct:[id number] Age/Sex: 54 / M ADM Date: 06/09/25 Loc: HO.US Attending Dr: Jake Blue MD Ordering Physician: Jake Blue MD Date of Service: 06/09/25 Procedure(s): US abdomen comp w elastography Accession Number(s): [id number] cc: Jake Blue MD EXAMINATION: US ABDOMEN COMPLETE WITH LIVER ELASTOGRAPHY HISTORY: HEREDITARY HEMOCHROMATOSIS TECHNIQUE: Real-time grayscale ultrasound imaging of the abdomen was performed and images were reviewed. COMPARISON: Comparison is made with the prior examination dated 03/08/2024. FINDINGS: Liver: The right lobe of the liver measures 14.5 cm in size. The left lobe of the liver measures 10.1 cm in size. The liver demonstrates increased echotexture, consistent with steatosis. There is focal fatty sparing adjacent to the gallbladder. There is a 7 mm cyst in the left lobe. No intrahepatic biliary ductal dilatation is identified. There is normal hepatopedal flow in the portal vein. Ultrasound elastography of the liver was performed with 10 separate measurements of the liver parenchyma with the patient in the supine position. Measurements were obtained approximately 2 cm below Danish's capsule and perpendicular to the capsule. The median shear wave velocity is 1.58 m/s (previously 1.36 m/s). The interquartile range/median (IQR/median) is 0.15. Gallbladder and biliary tree: The gallbladder is unremarkable, without evidence of calculi, wall thickening, or pericholecystic fluid. There is no sonographic Lock sign. The common bile duct is normal in caliber measuring 3 mm. Kidneys: The right kidney measures 10.8 cm in length. The left kidney measures 11.6 cm in length and demonstrates a 1.1 cm cyst in the interpolar region. The kidneys are otherwise unremarkable, without evidence of solid masses, hydronephrosis, or calculi. Pancreas: The pancreatic head, neck, and body are unremarkable. The pancreatic tail is obscured by bowel gas. Spleen: The spleen is normal in size and contour, measuring 11.0 cm in length. Abdominal aorta and inferior vena cava: The visualized portions of the abdominal aorta and inferior vena cava are normal in caliber. There is no free fluid in the abdomen. US/US abdomen comp w elastography IMPRESSION: Hepatic steatosis. Hepatic and left renal cysts as described. The median shear wave velocity in the liver is 1.58 m/s, corresponding to a median liver stiffness of 7.86 kPa. The IQR/median value is 0.15. This is indicative of a poor quality data set, and the estimated liver stiffness may be unreliable. Findings are indicative of a low elastography value which rules out advanced chronic liver disease in asymptomatic patients. REFERENCE: Society of Radiologists in Ultrasound Liver Stiffness Thresholds (2020): LIVER STIFFNESS THRESHOLDS: *Shear wave velocity less than 1.3 m/s (Liver Stiffness equal or less than 5 kPa): High probability of being normal. *Shear wave velocity less than 1.7 m/s (Liver Stiffness less than 9 kPa): In the absence of other known clinical signs, rules out compensated advanced chronic liver disease. *Shear wave velocity between 1.7-2.1 m/s (Liver Stiffness 9-13 kPa): Suggestive of compensated advanced chronic liver disease but need further test for confirmation. *Shear wave velocity between 2.1-2.4 m/s (Liver Stiffness 13-17 kPa): Rules in compensated advanced chronic liver disease. *Shear wave velocity greater than 2.4 m/s (Liver Stiffness over 17 kPa): Suggestive of clinically significant portal hypertension. QUALITY [...] liver stiffness thresholds are not well established. Electronically signed by: Jake De La Paz MD 06/09/2025 10:54 AM EDT Dictated By: Jake De La Paz MD Signed By: <Electronically signed by Jake De La Paz MD in OV> 06/09/25 1054 DD/ 0935 TD/TT: 06/09/25 1006 Employee Adviser: IRON PROFILE Reviewed date:06/25/2025 05:58:39 PM Interpretation: Performing Lab:[facility], [address] [place] [phone] Notes/Report: Iron 234 45-160 mcg/dL Total Iron Binding Capacity 259 228-428 mcg/dL Percent Iron Saturation 90 15-50 % Unsaturated Iron Binding < 25 Ferritin Reviewed date:06/25/2025 05:58:24 PM Interpretation: Performing Lab:[facility], [address] [place] [phone] Notes/Report: Ferritin 14 20-250 ng/mL Therapeutic Phlebotomy Reviewed date:06/25/2025 05:59:31 PM Interpretation: Performing Lab:[facility], [address] [place] [phone] Notes/Report: THER/HGB 14.6 14.0-18.0 g/dL THER/HCT TNP 42.0-52.0 % Therapeutic Phlebotomy Phlebotomy Performed 500 mls drawn on 06/24/25. Please note that a copy of this [...] Notes Problem Gastro-esophageal reflux disease without esophagitis (184936645) Gastro-esophageal reflux disease without esophagitis (K21.9) Active confirmed Problem 474125856 Encounter for screening for malignant neoplasm of colon (Z12.11) Active confirmed Problem History of adenomatous polyp of colon (307098004) History of adenomatous polyp of colon (Z86.010) Active confirmed Problem 68188569 Hereditary hemochromatosis (E83.110) Active confirmed Problem Diverticular disease of colon (137406475) Diverticulosis of large intestine without perforation or abscess without bleeding (K57.30) Active confirmed Problem Gastroduodenitis (642769634) Gastritis without bleeding, unspecified chronicity, unspecified gastritis type (K29.70) Active confirmed Problem Gastroesophageal reflux disease (disorder) (395718873) Chronic GERD (K21.9) Active confirmed Vital Signs Temperature 98.0 degrees Fahrenheit 04/09/2025 Blood pressure diastolic 01 mm Hg 04/09/2025 Height 70.75 in 04/09/2025 Blood pressure systolic 001 mm Hg 04/09/2025 Weight 184.4 lbs 04/09/2025 BMI 25.9 kg/m2 04/09/2025 Encounters Encounter Location Date Provider Diagnosis [facility] [address] [place] [phone] 04/09/2025 Jake Blue Hereditary hemochromatosis E83.110 ; Encounter for screening for malignant neoplasm of colon Z12.11 ; History of adenomatous polyp of colon Z86.010 and Chronic GERD K21.9 [facility] [address] [place] [phone] 02/05/2025 Jake Blue Assessments Encounter Date Diagnosis [...] keep you advised of his progress. 04/09/2025 Chronic GERD (ICD-10 - K21.9) Overall, Elías appears quite well. We did [...] advised of his progress. Plan Of Treatment Pending Test Test Name Order Date LIVER PROFILE 12/02/2022 LIVER PROFILE 04/09/2025 LIVER PROFILE 02/27/2024 CBC w DIFF 02/27/2024 CBC w DIFF 12/02/2022 CBC w DIFF 04/09/2025 PROTHROMBIN TIME (PT, INR) 09/25/2020 ALPHA-FETOPROTEIN,TUMOR MARKER 4 ALPHA-FETOPROTEIN,TUMOR MARKER 0 ALPHA-FETOPROTEIN,TUMOR MARKER 3 ALPHA-FETOPROTEIN,TUMOR MARKER 5 US ABD 09/25/2020 US ABD 12/02/2022 Prothrombin Time INR 02/27/2024 Prothrombin Time INR 12/02/2022 Liver Fibrosis Pnl 12/02/2022 Liver Fibrosis Pnl 02/27/2024 US abdomen comp w elastography 5 US abdomen comp w elastography Future Test Test Name Order Date COLONOSCOPY 04/24/2019 COLONOSCOPY 09/25/2020 UPPER GI ENDOSCOPY 02/27/2024 COLONOSCOPY 02/27/2024 Next Appt Details Provider Name:Jake Blue , 04/15/2026 04:00:00 PM, [address] [facility], [address], [place], [address], Insurance Providers Payer Name Payer Address Payer Phone Subscriber Number Group Number Insured Name Patient Relationship to Insured Coverage Start Date Coverage End Date [facility] [address] [place] [address] [id number] ELÍAS MARIE Self - patient is the insured Medical [...] ferritin was in the normal range Denies [place],DM,CVA,Lung disease,renal dise ase Screening colonoscopy in Jun--> [...]
== END 2025-08-26 15:28 | disposition home or self-care (01) ==
LOC: HO.BBR 15:27
PROVIDERS: Visit Provider Internal Medicine
DX: Z13.89 Encounter for screening for other disorder (principal)